=== PATIENT | male | born 1980 | race Hispanic/Latino ===

== ENCOUNTER 2019-08-26 07:49 | Emergency (ER) | payer OTHER ==
[2019-08-26] MEDS ORDERED: hydrOXYzine HCl 25 MG TAB ONE (08:08)
[2019-08-26 08:30] LABS: Protime INR 1.1
[2019-08-26 08:30] LABS: Urine Blood NEGATIVE (NEG); Urine Glucose NEGATIVE (NEG); Urine Protein 1+ (NEG); Urine pH 7.5 (5.0-7.0)
[2019-08-26 08:31] LABS: Absolute Lymphocytes (CBC) 1.5 K/uL (0.7-4.9); Basophils % 0.7 % (0-1.3); Hematocrit 45.4 % (39.6-49.0); Lymphocytes % 24.8 % (15.3-44.8); MPV 8.7 fL (7.6-11.3); RBC Red Blood Cell Count 5.43 M/uL (4.33-5.43)
[2019-08-26 08:48] LABS: ALT/SGPT 31 U/L (12-78); AST/SGOT 26 U/L (15-37); Albumin 4.2 g/dL (3.4-5.0); Alkaline Phosphatase 57 U/L (45-117); BUN Blood Urea Nitrogen 8 mg/dL (7-18); Bicarbonate 27 mmol/L (21-32); Bilirubin Direct 0.2 mg/dL (0-0.2); Bilirubin Total 0.6 mg/dL (0.2-1.0); Glucose Level 108 mg/dL (74-106); Potassium 3.7 mmol/L (3.5-5.1); Protein, Total 7.6 g/dL (6.4-8.2); Sodium Level 139 mmol/L (136-145)
[2019-08-26] MEDS ORDERED: HALOPERIDOL 5 MG TAB PO ONE (09:00)
[2019-08-26] MEDS ORDERED: LORAZEPAM 1 MG TABLET ONE (09:13)
--- NOTE | 2019-08-26 10:31 | ER ---
Nurse's Notes [facility] Name: Alonso Karimi Age: 38 yrs Sex: Male : 1980 Arrival Date: 08/26/2019 Time: 07:54 Bed 6 Private MD: Diagnosis: Manic episode, severe with psychotic symptoms Presentation: 08/26 07:54 Presenting complaint: EMS states: Pt reports his insides are falling out or being hb pulled out through his genitals. Denies SI/HI or illicit drug use. Transition of care: patient was not received from another setting of care. Onset of symptoms was August 26, 2019. Risk Assessment: Do you want to hurt yourself or someone else? Patient reports no desire to harm self or others. Initial Sepsis Screen: Does the patient meet any 2 criteria? No. Patient's initial sepsis screen is negative. Does the patient have a suspected source of infection? No. Patient's initial sepsis screen is negative. Care prior to arrival: None. 07:54 Method Of Arrival: EMS: [facility] 07:54 Acuity: HERMINIO 3 hb Triage Assessment: 07:58 General: Appears in no apparent distress. Behavior is cooperative, anxious. Pain: Pain hb currently is 10 out of 10 on a pain scale. EENT: No signs and/or symptoms were reported regarding the EENT system. Neuro: Level of Consciousness is awake, alert, obeys commands, Oriented to person, place, time, situation. Cardiovascular: Heart tones S1 S2 present Capillary refill < 3 seconds Patient's skin is warm and dry. Respiratory: Airway is patent Respiratory effort is even, unlabored, Respiratory pattern is regular, symmetrical, Breath sounds are clear bilaterally. GI: No signs and/or symptoms were reported involving the gastrointestinal system. : No signs and/or symptoms were reported regarding the genitourinary system. Derm: Skin is intact, is healthy with good turgor. Musculoskeletal: No signs and/or symptoms reported regarding the musculoskeletal system. Historical: - Allergies: 07:57 No Known Allergies; hb - Home Meds: 07:57 None [Active]; hb - PMHx: 07:57 Bipolar disorder; hb 10:31 Hypertension; gs - PSHx: 07:57 right middle finger surgery; hb - Immunization history:: Adult Immunizations up to date. - Social history:: Smoking status: Patient uses tobacco products, smokes one-half pack cigarettes per day. - Ebola Screening: : No symptoms or risks identified at this time. Screenin:59 Abuse screen: Denies threats or abuse. Denies injuries from another. Nutritional hb screening: No deficits noted. Tuberculosis screening: No symptoms or risk factors identified. Fall Risk None identified. Assessment: 07:59 General: see triage assessment. hb 09:00 Reassessment: Patient appears in no apparent distress at this time. No changes from previously documented assessment. Patient and/or family updated on plan of care and expected duration. Pain level reassessed. 09:04 Reassessment: Pt pacing room, NAD. Dr. Christianson at bedside. hb 09:25 Reassessment: Pt pacing, denies pain. Dr. Christianson aware. Ativan administered as ordered. hb 10:02 Reassessment: Reassessment: pt resting with eyes closed, arousable to verbal stimuli. hb VSS. Vital Signs: 07:57 BP 147 / 104; Pulse 86; Resp 16; Temp 97.8; Pulse Ox 100% on R/A; Weight 80.74 kg; hb Height 5 ft. 7 in. (170.18 cm); Pain 10/10; 09:00 BP 136 / 86; Pulse 80; Resp 16; Pulse Ox 100% on R/A; Pain 0/10; hb 10:00 BP 118 / 74; Pulse 68; Resp 15; Pulse Ox 100% on R/A; Pain 0/10; hb 07:57 Body Mass Index 27.88 (80.74 kg, 170.18 cm) ED Course: 07:54 Patient arrived in ED. hb 07:54 Dawson Christianson MD is Attending Physician. 07:56 Triage completed. hb 07:57 Arm band placed on. hb 07:59 Patient has correct armband on for positive identification. Bed in low position. Call light in reach. Side rails up X 1. 08:04 Alayna Melvin, AMOS is Primary Nurse. hb 08:24 Initial lab(s) drawn, by nh, sent to lab. Urine collected: clean catch specimen, clear, ms Amount Voided: 40mL. Inserted saline lock: 20 gauge in right forearm, using aseptic technique. 08:38 EKG done, by ED staff, reviewed by Dawson Christianson MD. ms 11:10 No provider procedures requiring assistance completed. IV discontinued, intact, hb bleeding controlled, No redness/swelling at site. Pressure dressing applied. Administered Medications: 08:08 Not Given (Duplicate Order): HydrALAZINE 50 mg PO once 08:10 Drug: hydrOXYzine 50 mg Route: PO; hb 09:06 Follow up: Response: No adverse reaction hb 09:06 Drug: Haldol 10 mg Route: PO; hb 10:00 Follow up: Response: No adverse reaction hb 09:17 Drug: Ativan 2 mg Route: PO; hb 10:15 Follow up: Response: No adverse reaction hb Outcome: 10:31 Discharge ordered by . gs 11:10 Discharged to home ambulatory. hb 11:10 Condition: stable 11:10 Discharge instructions given to patient, Instructed on discharge instructions, follow up and referral plans. medication usage, Demonstrated understanding of instructions, follow-up care, medications. 11:11 Patient left the ED. hb Signatures: Shazia Young ms Alayna Melvin RN RN Dawson Christianson MD MD Corrections: (The following items were deleted from the chart) 10:29 10:27 Reassessment: hb hb 11:10 11:10 Discharge instructions given to patient, Instructed on discharge instructions, hb follow up and referral plans. medication usage, Demonstrated understanding of instructions, follow-up care, wound care, hb
[2019-08-26 10:32] LABS: Barbiturates NEGATIVE (NEGATIVE); Benzodiazepines NEGATIVE (NEGATIVE); Cocaine NEGATIVE (NEGATIVE); METHAMPHETAM NEGATIVE (NEGATIVE); Methadone NEGATIVE (NEGATIVE); Opiates NEGATIVE (NEGATIVE); Phencyclidine NEGATIVE (NEGATIVE); THC Cannibis NEGATIVE (NEGATIVE)
--- NOTE | 2019-08-26 10:32 | EDPHYS ---
Physician Documentation [facility] Name: Alonso Karimi Age: 38 yrs Sex: Male : 1980 Arrival Date: 08/26/2019 Time: 07:54 Bed 6 Private MD: ED Physician Dawson Christianson HPI: 08/26 10:08 This 38 yrs old Male presents to ER via EMS with complaints of Psych Problem. gs 10:08 The patient presents to the emergency department with paranoia, psychosis, has gs experienced auditory hallucinations, has delusions. Onset: The symptoms/episode began/occurred at an unknown time. Past psychiatric history: Prior diagnosis: bipolar disorder, schizophrenia. Associated signs and symptoms: Pertinent negatives: homicidal ideation, suicide ideation. Severity of symptoms: At their worst the symptoms were severe in the emergency department the symptoms are unchanged. The patient has experienced similar episodes in the past, a few times. Historical: - Allergies: 07:57 No Known Allergies; hb - Home Meds: 07:57 None [Active]; hb - PMHx: 07:57 Bipolar disorder; hb 10:31 Hypertension; gs - PSHx: 07:57 right middle finger surgery; hb - Immunization history:: Adult Immunizations up to date. - Social history:: Smoking status: Patient uses tobacco products, smokes one-half pack cigarettes per day. - Ebola Screening: : No symptoms or risks identified at this time. ROS: 10:08 All other systems are negative. gs Exam: 10:08 Head/Face: Normocephalic, atraumatic. Eyes: Pupils equal round and reactive to light, gs extra-ocular motions intact. Lids and lashes normal. Conjunctiva and sclera are non-icteric and not injected. Cornea within normal limits. Periorbital areas with no swelling, redness, or edema. ENT: Nares patent. No nasal discharge, no septal abnormalities noted. Tympanic membranes are normal and external auditory canals are clear. Oropharynx with no redness, swelling, or masses, exudates, or evidence of obstruction, uvula midline. Mucous membranes moist. Neck: Trachea midline, no thyromegaly or masses palpated, and no cervical lymphadenopathy. Supple, full range of motion without nuchal rigidity, or vertebral point tenderness. No Meningismus. Chest/axilla: Normal chest wall appearance and motion. Nontender with no deformity. No lesions are appreciated. Cardiovascular: Regular rate and rhythm with a normal S1 and S2. No gallops, murmurs, or rubs. Normal PMI, no JVD. No pulse deficits. Respiratory: Lungs have equal breath sounds bilaterally, clear to auscultation and percussion. No rales, rhonchi or wheezes noted. No increased work of breathing, no retractions or nasal flaring. Abdomen/GI: Soft, non-tender, with normal bowel sounds. No distension or tympany. No guarding or rebound. No evidence of tenderness throughout. Back: No spinal tenderness. No costovertebral tenderness. Full range of motion. Skin: Warm, dry with normal turgor. Normal color with no rashes, no lesions, and no evidence of cellulitis. MS/ Extremity: Pulses equal, no cyanosis. Neurovascular intact. Full, normal range of motion. Neuro: Awake and alert, GCS 15, oriented to person, place, time, and situation. Cranial nerves II-XII grossly intact. Motor strength 5/5 in all extremities. Sensory grossly intact. Cerebellar exam normal. Normal gait. 10:08 Constitutional: The patient appears alert, awake. 10:08 Psych: Behavior/mood is pleasant, anxious, Affect is calm, Oriented to person, place, time, Patient has no thoughts/intents to harm self or others. Judgement / Insight is impaired. Delusions/hallucinations are present and described as says feels like he is having stigmata. Vital Signs: 07:57 BP 147 / 104; Pulse 86; Resp 16; Temp 97.8; Pulse Ox 100% on R/A; Weight 80.74 kg; hb Height 5 ft. 7 in. (170.18 cm); Pain 10/10; 09:00 BP 136 / 86; Pulse 80; Resp 16; Pulse Ox 100% on R/A; Pain 0/10; hb 10:00 BP 118 / 74; Pulse 68; Resp 15; Pulse Ox 100% on R/A; Pain 0/10; hb 07:57 Body Mass Index 27.88 (80.74 kg, 170.18 cm) hb MDM: 07:54 Patient medically screened. 10:08 Data reviewed: vital signs, nurses notes, lab test result(s). Counseling: I had a gs detailed discussion with the patient and/or guardian regarding: the historical points, exam findings, and any diagnostic results supporting the discharge/admit diagnosis, the need for outpatient follow up, a psychiatrist. Response to treatment: the patient's symptoms have markedly improved after treatment, pt is med noncompliant no direct desire to harm self others. . 08/26 07:55 Order name: Acetaminophen 08/26 07:55 Order name: Basic Metabolic Panel 08/26 07:55 Order name: CBC with Diff 08/26 07:55 Order name: ETOH Level 08/26 07:55 Order name: Hepatic Function 08/26 07:55 Order name: PT-INR 08/26 07:55 Order name: Salicylate 08/26 07:55 Order name: Urine Drug Screen 08/26 07:55 Order name: EKG; Complete Time: 07:56 08/26 08:12 Order name: Urine Dipstick--Ancillary (enter results) 08/26 07:55 Order name: EKG - Nurse/Tech; Complete Time: 08:38 08/26 07:55 Order name: IV Saline Lock; Complete Time: 08:10 08/26 07:55 Order name: Labs collected and sent; Complete Time: 08:10 08/26 07:55 Order name: Urine Dipstick-Ancillary (obtain specimen); Complete Time: 08:10 gs Administered Medications: 08:08 Not Given (Duplicate Order): HydrALAZINE 50 mg PO once gs 08:10 Drug: hydrOXYzine 50 mg Route: PO; hb 09:06 Follow up: Response: No adverse reaction hb 09:06 Drug: Haldol 10 mg Route: PO; hb 10:00 Follow up: Response: No adverse reaction hb 09:17 Drug: Ativan 2 mg Route: PO; hb 10:15 Follow up: Response: No adverse reaction hb Disposition: 08/26/19 10:31 Discharged to Home. Impression: Manic episode, severe with psychotic symptoms. - Condition is Stable. - Discharge Instructions: Bipolar Disorder. - Medication Reconciliation Form, Thank You Letter, Antibiotic Education, Prescription Opioid Use form. - Follow up: Private Physician; When: 2 - 3 days; Reason: Re-evaluation by your physician. Signatures: Dispatcher [employer] EDAlayna Guevara RN RN hb Starr, Gregory, MD MD Corrections: (The following items were deleted from the chart) 11:11 10:31 08/26/2019 10:31 Discharged to Home. Impression: Manic episode, severe with hb psychotic symptoms. Condition is Stable. Forms are Medication Reconciliation Form, Thank You Letter, Antibiotic Education, Prescription Opioid Use. Follow up: Private Physician; When: 2 - 3 days; Reason: Re-evaluation by your physician. gs
[2019-08-26 11:18] VITALS: TEMP 97.8; O2SAT 100
[2019-08-26 11:21] VITALS: BP 118/74
--- NOTE | 2019-08-27 06:11 | EKG ---
Test Date: 2019-08-26 Test Time: 08:31:29 Money Examiner: MEASUREMENT RESULTS: Intervals: Rate: 92 WI: 102 QRSD: 84 QT: 354 QTc: 437 [place]: P: 59 WI: 102 QRS: 69 T: 69 INTERPRETIVE STATEMENTS: Sinus rhythm with short WI Otherwise normal ECG Compared to ECG 06/27/2003 14:32:00 Sinus arrhythmia no longer present Electronically Signed On 08-27-19 06:09:57 CDT by Papito Beckwith
== END 2019-08-26 11:11 | disposition home or self-care (01) ==
LOC: ER 07:49
DX: F30.2 Manic episode, severe with psychotic symptoms (principal); I10 Essential (primary) hypertension; F17.210 Nicotine dependence, cigarettes, uncomplicated
CPT/HCPCS: 36415; 80048; 80076; 80307; 80320; 80329; 81003; 85025; 85610; 93005; 99284

== ENCOUNTER 2019-09-29 18:44 | Emergency (ER) | payer OTHER ==
--- OUTSIDE RECORDS SUMMARY | 2019-09-29 18:48 | XMS REPORT ---
:1980 [facility] Address [address] [place] [address] [address] [place] [address] Care Team Providers Name Role Phone Unavailable Unavailable Unavailable Problems This patient has no known problems. Allergies, Adverse Reactions, Alerts This patient has no known allergies or adverse reactions. Medications This patient has no known medications. Results Test Description Test Time Test Comments Text Results Atomic Results Result Comments RPR Qualitative 2019-07-10 16:44:26 Test Item Value Reference Range Comments RPR Qual (test code=RPR Qual) Non-Reactive Non-Reactive Reactive Control (test code=Reactive Control) Reactive Weak Reactive Control (test code=Weak Reactive Control) Weak Reactive Non-Reactive Control (test code=Non-Reactive Control) Non-Reactive Lot # (test code=Lot #) [id number] Expiration Dt (test code=Expiration Dt) 09-07-2020 Thyroid Stimulating [id number] 09:59:42 Test Item Value Reference Range Comments TSH (test code=TSH) 3.050 mIU/mL 0.270-4.200 Lipid [id number] 09:56:17 Test Item Value Reference Range Comments Cholesterol Total (test 147 mg/dL 0-200 RISK OF HEART DISEASEPublished code=Cholesterol Total) by [place] [employer] Analyte Optimal Borderline Increased RiskCHOL <200 200-239 >240TRIG <150 150-199 >200HDL Male >60 <40HDL Female >60 <50LDL <100 130-159 >160LDL Near optimal is 100-129 Triglycerides (test 65 mg/dL 9-200 code=Triglycerides) HDL (test code=HDL) 52 mg/dL 40-60 LDL (test code=LDL) 82 mg/dL 0-130 The equation being used in this calculation is LDL=(Chol - HDL) - (Trig / 5) VLDL (test code=VLDL) 13 mg/dL 5-40 The equation being used in this calculation is VLDL=Trig / 5 Chol/HDL (test 2.8 ratio 0.0-5.0 code=Chol/HDL) LDL/HDL Ratio (test 2 The equation being used in this code=LDL/HDL Ratio) calculation is LDL/HDL Ratio=LDL Calc/HDL Chol Alcohol [id number] 12:10:04 Test Item Value Reference Range Comments Ethanol Level (test <0.00 g/dL 0.00-0.01 Intoxicated 0.080 g/dL or more code=Ethanol Level) Ethanol Inst (test <0 code=Ethanol Inst) Comprehensive Metabolic [id number] 12:10:03 Test Item Value Reference Range Comments Sodium Level (test code=Sodium Level) 137.0 mmol/L 135.0-145.0 Potassium Level (test code=Potassium Level) 4.2 mmol/L 3.5-5.1 Chloride Level (test code=Chloride Level) 96 mmol/L 98-105 CO2 (test code=CO2) 27 mmol/L 22-29 Anion Gap (test code=Anion Gap) 14 mmol/L 7-16 BUN (test code=BUN) 8.70 mg/dL 6.00-20.00 Creatinine Level (test code=Creatinine Level) 1.00 mg/dL 0.70-1.20 BUN/Creat Ratio (test code=BUN/Creat Ratio) 9 Glucose Level (test code=Glucose Level) 97 mg/dL 70-115 Calcium Level (test code=Calcium Level) 9.6 mg/dL 8.3-10.5 Alk Phos (test code=Alk Phos) 65 U/L 40-129 Bilirubin Total (test code=Bilirubin Total) 0.6 mg/dL 0.1-0.9 Albumin Level (test code=Albumin Level) 4.9 g/dL 3.5-5.2 Protein Total (test code=Protein Total) 7.7 g/dL 6.4-8.3 ALT (test code=ALT) 21 U/L 1-41 AST (test code=AST) 28 U/L 1-40 Globulin (test code=Globulin) 2.8 g/dL 2.9-3.1 A/G Ratio (test code=A/G Ratio) 1.8 ratio Comprehensive Metabolic [id number] 12:10:03 Test Item Value Reference Range Comments Sodium Level (test 137.0 mmol/L 135.0-145.0 code=Sodium Level) Potassium Level (test 4.2 mmol/L 3.5-5.1 code=Potassium Level) Chloride Level (test 96 mmol/L 98-105 code=Chloride Level) CO2 (test code=CO2) 27 mmol/L 22-29 Anion Gap (test 14 mmol/L 7-16 code=Anion Gap) BUN (test code=BUN) 8.70 mg/dL 6.00-20.00 Creatinine Level (test 1.00 mg/dL 0.70-1.20 code=Creatinine Level) BUN/Creat Ratio (test 9 code=BUN/Creat Ratio) Glucose Level (test 97 mg/dL 70-115 code=Glucose Level) Calcium Level (test 9.6 mg/dL 8.3-10.5 code=Calcium Level) Alk Phos (test code=Alk 65 U/L 40-129 Phos) Bilirubin Total (test 0.6 mg/dL 0.1-0.9 code=Bilirubin Total) Albumin Level (test 4.9 g/dL 3.5-5.2 code=Albumin Level) Protein Total (test 7.7 g/dL 6.4-8.3 code=Protein Total) ALT (test code=ALT) 21 U/L 1-41 AST (test code=AST) 28 U/L 1-40 Globulin (test 2.8 g/dL 2.9-3.1 code=Globulin) A/G Ratio (test code=A/G 1.8 ratio Ratio) eGFR AA (test code=eGFR >60 mL/min/1.73 m2 eGFR (estimated AA) Glomerular Filtration Rate) is an estimated value, calculated from the patient's serum creatinine using the MDRD equation. It is NOT the patient's actual GFR. The eGFR provides a more clinically useful measure of kidney disease than serum creatinine alone.This calculation takes sex and race into account, if the information is provided. If the race is not provided, and the patient is -[place], multiply by 1.212. If sex is not provided, and the patient is female, multiply by 0.742. Results for patients <18 years of age have not been validated by the MDRD study and should be interpreted with caution. eGFR Result Interpretation:eGFR > or=60 is in the Normal RangeeGFR < 60 may mean kidney diseaseeGFR < 15 may mean kidney failure Ranges recommended by the National Kidney Foundation, http://nkdep.nih.gov Comprehensive Metabolic [id number] 12:10:03 Test Item Value Reference Range Comments Sodium Level (test 137.0 mmol/L 135.0-145.0 code=Sodium Level) Potassium Level (test 4.2 mmol/L 3.5-5.1 code=Potassium Level) Chloride Level (test 96 mmol/L 98-105 code=Chloride Level) CO2 (test code=CO2) 27 mmol/L 22-29 Anion Gap (test 14 mmol/L 7-16 code=Anion Gap) BUN (test code=BUN) 8.70 mg/dL 6.00-20.00 Creatinine Level (test 1.00 mg/dL 0.70-1.20 code=Creatinine Level) BUN/Creat Ratio (test 9 code=BUN/Creat Ratio) Glucose Level (test 97 mg/dL 70-115 code=Glucose Level) Calcium Level (test 9.6 mg/dL 8.3-10.5 code=Calcium Level) Alk Phos (test code=Alk 65 U/L 40-129 Phos) Bilirubin Total (test 0.6 mg/dL 0.1-0.9 code=Bilirubin Total) Albumin Level (test 4.9 g/dL 3.5-5.2 code=Albumin Level) Protein Total (test 7.7 g/dL 6.4-8.3 code=Protein Total) ALT (test code=ALT) 21 U/L 1-41 AST (test code=AST) 28 U/L 1-40 Globulin (test 2.8 g/dL 2.9-3.1 code=Globulin) A/G Ratio (test code=A/G 1.8 ratio Ratio) eGFR AA (test code=eGFR >60 mL/min/1.73 m2 eGFR (estimated AA) Glomerular Filtration Rate) is an estimated value, calculated from the patient's serum creatinine using the MDRD equation. It is NOT the patient's actual GFR. The eGFR provides a more clinically useful measure of kidney disease than serum creatinine alone.This calculation takes sex and race into account, if the information is provided. If the race is not provided, and the patient is -[place], multiply by 1.212. If sex is not provided, and the patient is female, multiply by 0.742. Results for patients <18 years of age have not been validated by the MDRD study and should be interpreted with caution. eGFR Result Interpretation:eGFR > or=60 is in the Normal RangeeGFR < 60 may mean kidney diseaseeGFR < 15 may mean kidney failure Ranges recommended by the National Kidney Foundation, http://nkdep.nih.gov eGFR Non-AA (test >60.00 mL/min/1.73 eGFR (estimated code=eGFR Non-AA) m2 Glomerular Filtration Rate) is an estimated value, calculated from the patient's serum creatinine using the MDRD equation. It is NOT the patient's actual GFR. The eGFR provides a more clinically useful measure of kidney disease than serum creatinine alone.This calculation takes sex and race into account, if the information is provided. If the race is not provided, and the patient is -[place], multiply by 1.212. If sex is not provided, and the patient is female, multiply by 0.742. Results for patients <18 years of age have not been validated by the MDRD study and should be interpreted with caution. eGFR Result Interpretation:eGFR > or=60 is in the Normal RangeeGFR < 60 may mean kidney diseaseeGFR < 15 may mean kidney failure Ranges recommended by the National Kidney Foundation, http://nkdep.nih.gov Urine Drug [id number] 12:08:43 Test Item Value Reference Range Comments Amphetamine Screen Ur (test POSITIVE Negative code=Amphetamine Screen Ur) Barbiturate Screen Ur (test Negative Negative code=Barbiturate Screen Ur) Benzodiazepines Ur (test Negative Negative code=Benzodiazepines Ur) Cocaine Screen Ur (test Negative Negative code=Cocaine Screen Ur) U Methadone Scr (test code=U Negative Negative Methadone Scr) Opiate Screen Ur (test Negative Negative code=Opiate Screen Ur) U PCP Scrn (test code=U PCP Negative Negative Scrn) Cannabinoid Screen Ur (test Negative Negative code=Cannabinoid Screen Ur) U TCA (test code=U TCA) Negative Negative The results of all drug screen tests are only preliminary. Clinical consideration and professional judgment should be applied to any drug of abuse test result, particularly when preliminary positive results are obtained. Please order a separate confirmatory test if desired. Complete Blood Count with [id number] 11:58:13 Test Item Value Reference Range Comments WBC (test code=WBC) 9.2 x10 4.4-10.5 RBC (test code=RBC) 5.60 x10 4.10-5.70 Hgb (test code=Hgb) 15.9 g/dL 13.4-17.4 Hct (test code=Hct) 47.3 % 38.7-52.0 MCV (test code=MCV) 84.50 fL 80.00-100.00 MCHC (test code=MCHC) 33.60 g/dL 32.00-37.50 RDW CV (test code=RDW CV) 12.9 % 11.5-14.5 MCH (test code=MCH) 28.4 pg 27.0-32.5 Platelets (test 207.0 x10 140.0-440.0 code=Platelets) MPV (test code=MPV) 10.8 fL Slide Review (test code=Slide Auto Auto Result created by Review) [id number] nRBC (test code=nRBC) 0 NRBC Abs (test code=NRBC Abs) 0.00 x10 IPF (test code=IPF) 0 % Automated [id number] 11:58:13 Test Item Value Reference Range Comments Neutro Auto (test code=Neutro Auto) 62.9 % 36.0-70.0 Lymph Auto (test code=Lymph Auto) 25.2 % 12.0-44.0 Powell Auto (test code=Powell Auto) 9.3 % 0.0-11.0 Eos, Auto (test code=Eos, Auto) 1.6 % 0.0-7.0 Basophil Auto (test code=Basophil Auto) 0.7 % 0.0-2.0 Neutro Absolute (test code=Neutro Absolute) 5.8 x10 1.6-7.4 Lymph Absolute (test code=Lymph Absolute) 2.32 x10 .50-4.60 Powell Absolute (test code=Powell Absolute) .86 x10 .00-1.20 Eos Absolute (test code=Eos Absolute) 0.15 x10 0.00-0.74 Baso Absolute (test code=Baso Absolute) 0.06 x10 0.00-0.21 IG [id number] 11:58:13 Test Item Value Reference Range Comments IG (test code=IG) 0.3 % 0.0-5.0 IG Abs (test code=IG Abs) 0 x10
[2019-09-29] MEDS ORDERED: ONDANSETRON 4 MG/2 ML VIAL ONE (19:10)
[2019-09-29] MEDS ORDERED: MORPHINE 4 MG/ML SYR ONE (19:10)
[2019-09-29 19:25] LABS: Absolute Lymphocytes (CBC) 2.3 K/uL (0.7-4.9); Basophils % 1.1 % (0-1.3); Hematocrit 45.8 % (39.6-49.0); Lymphocytes % 31.6 % (15.3-44.8); MPV 8.8 fL (7.6-11.3); RBC Red Blood Cell Count 5.32 M/uL (4.33-5.43)
[2019-09-29 20:43] LABS: ALT/SGPT 41 U/L (12-78); AST/SGOT 36 U/L (15-37); Albumin 4.1 g/dL (3.4-5.0); Alkaline Phosphatase 55 U/L (45-117); BUN Blood Urea Nitrogen 12 mg/dL (7-18); Bicarbonate 28 mmol/L (21-32); Bilirubin Direct < 0.1 mg/dL (0-0.2); Bilirubin Total 0.3 mg/dL (0.2-1.0); Glucose Level 126 mg/dL (74-106); Lipase 265 U/L (73-393); Potassium 3.9 mmol/L (3.5-5.1); Protein, Total 7.5 g/dL (6.4-8.2); Sodium Level 136 mmol/L (136-145)
--- NOTE | 2019-09-29 21:44 | ER ---
Nurse's Notes [facility] Name: Alonso Karimi Age: 38 yrs Sex: Male : 1980 Arrival Date: 09/29/2019 Time: 18:47 Bed 16 Private MD: Diagnosis: Generalized abdominal pain Presentation: 09/29 18:48 Presenting complaint: Patient states: diffuse abd pain that radiates down to bilateral sv knees, "I've been having dreams lately that I'm full of cancer and its just eating me up inside. I need to get it checked out.". Transition of care: patient was not received from another setting of care. Onset of symptoms is unknown. Care prior to arrival: None. 18:48 Method Of Arrival: Ambulatory sv 18:48 Acuity: HERMINIO 2 sv 19:05 Risk Assessment: Do you want to hurt yourself or someone else? Patient reports no ca1 desire to harm self or others. Initial Sepsis Screen: Does the patient meet any 2 criteria? No. Patient's initial sepsis screen is negative. Does the patient have a suspected source of infection? No. Patient's initial sepsis screen is negative. Historical: - Allergies: 18:48 No Known Drug Allergies; sv - PMHx: 18:48 Bipolar disorder; Hypertension; sv - PSHx: 18:48 right middle finger surgery; sv - Immunization history:: Adult Immunizations up to date, Flu vaccine is not up to date. - Social history:: Smoking status: Patient uses tobacco products, smokes one-half pack cigarettes per day. - Ebola Screening: : Patient negative for fever greater than or equal to 101.5 degrees Fahrenheit, and additional compatible Ebola Virus Disease symptoms Patient denies exposure to infectious person Patient denies travel to an Ebola-affected area in the 21 days before illness onset No symptoms or risks identified at this time. Screenin:02 Abuse screen: Denies threats or abuse. Denies injuries from another. Nutritional ca1 screening: No deficits noted. Tuberculosis screening: No symptoms or risk factors identified. Fall Risk IV access (20 points). Assessment: 19:02 General: Appears in no apparent distress. comfortable, Behavior is calm, cooperative. ca1 Pain: Complains of pain in abdomen Pain currently is 10 out of 10 on a pain scale. Pain began months ago Is intermittent. Neuro: Level of Consciousness is awake, alert, obeys commands, Oriented to person, place, time, situation. Cardiovascular: Heart tones S1 S2 present Capillary refill < 3 seconds Patient's skin is warm and dry. Respiratory: Airway is patent Respiratory effort is even, unlabored, Respiratory pattern is regular, symmetrical, Breath sounds are clear bilaterally. GI: Abdomen is flat, non-distended, Bowel sounds present X 4 quads. Abd is soft and non tender X 4 quads. Reports nausea. : No deficits noted. No signs and/or symptoms were reported regarding the genitourinary system. EENT: No deficits noted. No signs and/or symptoms were reported regarding the EENT system. Derm: Skin is intact, is healthy with good turgor, Skin is pink, warm \\T\\ dry. Musculoskeletal: Circulation, motion, and sensation intact. Capillary refill < 3 seconds, Range of motion: intact in all extremities. 19:44 Reassessment: Patient appears in no apparent distress at this time. Patient is alert, ca1 oriented x 3, equal unlabored respirations, skin warm/dry/pink. 20:39 Reassessment: Patient appears in no apparent distress at this time. Patient and/or ca1 family updated on plan of care and expected duration. Pain level reassessed. Patient is alert, oriented x 3, equal unlabored respirations, skin warm/dry/pink. 21:35 Reassessment: Patient appears in no apparent distress at this time. Patient is alert, ca1 oriented x 3, equal unlabored respirations, skin warm/dry/pink. Vital Signs: 18:50 BP 155 / 103; Pulse 122; Resp 18; Temp 98.5; Pulse Ox 98% ; Weight 88.45 kg; Height 5 sv ft. 10 in. (177.80 cm); 19:40 BP 142 / 94; Pulse 93; Resp 17; Pulse Ox 98% on R/A; ca1 21:19 BP 151 / 94; Pulse 91; Resp 18; Pulse Ox 100% on R/A; wh 21:50 BP 146 / 92; Pulse 92; Resp 17 S; Pulse Ox 98% on R/A; ca1 18:50 Body Mass Index 27.98 (88.45 kg, 177.80 cm) sv ED Course: 18:47 Patient arrived in ED. sv 18:48 Arm band placed on. sv 18:50 Triage completed. sv 18:52 [facility] nh 18:52 Terrell Mosquera MD is Attending Physician. nh 18:54 Dotty Hill, AMOS is Primary Nurse. ca1 19:05 Patient has correct armband on for positive identification. Placed in gown. Bed in low ca1 position. Call light in reach. Side rails up X 1. Pulse ox on. NIBP on. Warm blanket given. 19:07 No provider procedures requiring assistance completed. Initial lab(s) drawn, by me, ca1 sent to lab. Inserted saline lock: 20 gauge in left antecubital area, using aseptic technique. Blood collected. 19:49 Radiology exam delayed due to lab results not completed at this time. (BUN/Creatinine). [facility] 20:05 Radiology exam delayed due to lab results not completed at this time. (BUN/Creatinine). va 20:22 Radiology exam delayed due to lab results not completed at this time. (BUN/Creatinine). va 21:08 CT Abd/Pelvis - IV Contrast Only In Process Unspecified. EDMS 21:59 IV discontinued, intact, bleeding controlled, No redness/swelling at site. Pressure ca1 dressing applied. Administered Medications: 19:08 Drug: Zofran 4 mg Route: IVP; Site: left antecubital; ca1 20:00 Follow up: Response: No adverse reaction; Nausea is decreased ca1 21:49 Follow up: Response: No adverse reaction; Nausea is decreased 19:10 Drug: morphine 4 mg {Note: RASS - 0.} Route: IVP; Site: left antecubital; ca1 20:00 Follow up: Response: No adverse reaction; Pain is decreased; RASS: Alert and Calm (0) ca1 21:48 Follow up: Response: No adverse reaction; RASS: Alert and Calm (0) wh 21:50 Drug: Ativan 1 mg Route: PO; ca1 21:58 Follow up: Response: Medication administered at discharge. ca1 21:58 Drug: traMADol 50 mg Route: PO; ca1 21:58 Follow up: Response: No adverse reaction; Medication administered at discharge.; RASS: ca1 Alert and Calm (0) Outcome: 21:43 Discharge ordered by . nh 22:01 Discharged to home ambulatory, with significant other. ca1 22:01 Condition: stable 22:01 Discharge instructions given to patient, Instructed on discharge instructions, follow up and referral plans. medication usage, Demonstrated understanding of instructions, follow-up care, medications, Prescriptions given X 1. 22:01 Patient left the ED. ca1 Signatures: Dispatcher [employer] Rosalee Connor RN RN Nadine Sloan, [address] [employer] [employer] glo Newman, Stacey Love [facility] Tomás Cruz Dotty Hill RN RN ca1 Corrections: (The following items were deleted from the chart) 18:51 18:48 Acuity: HERMINIO 3 sv sv
--- NOTE | 2019-09-29 21:44 | EDPHYS ---
Physician Documentation [facility] Name: Alonso Karimi Age: 38 yrs Sex: Male : 1980 Arrival Date: 09/29/2019 Time: 18:47 Bed 16 Private MD: ED Physician Terrell Mosquera HPI: 09/29 20:46 This 38 yrs old Male presents to ER via Ambulatory with complaints of nh Abdominal Pain, Leg Pain. 20:46 The patient presents with abdominal pain that is diffuse. Onset: The symptoms/episode nh began/occurred 6 month(s) ago, and became persistent. The symptoms do not radiate. Associated signs and symptoms: none. The symptoms are described as sharp. Modifying factors: The symptoms are alleviated by nothing, the symptoms are aggravated by nothing. Severity of pain: At its worst the pain was severe. The patient has not experienced similar symptoms in the past. The patient has not recently seen a physician. Patient states that the pain has been going on for 6 months. He states that it is severe and he has been having visions that cancer is eating his insides. Historical: - Allergies: 18:48 No Known Drug Allergies; sv - PMHx: 18:48 Bipolar disorder; Hypertension; sv - PSHx: 18:48 right middle finger surgery; sv - Immunization history:: Adult Immunizations up to date, Flu vaccine is not up to date. - Social history:: Smoking status: Patient uses tobacco products, smokes one-half pack cigarettes per day. - Ebola Screening: : Patient negative for fever greater than or equal to 101.5 degrees Fahrenheit, and additional compatible Ebola Virus Disease symptoms Patient denies exposure to infectious person Patient denies travel to an Ebola-affected area in the 21 days before illness onset No symptoms or risks identified at this time. ROS: 20:46 Constitutional: Negative for fever, chills, and weight loss, Eyes: Negative for injury, nh pain, redness, and discharge, ENT: Negative for injury, pain, and discharge, Neck: Negative for injury, pain, and swelling, Cardiovascular: Negative for chest pain, palpitations, and edema, Respiratory: Negative for shortness of breath, cough, wheezing, and pleuritic chest pain, Back: Negative for injury and pain, : Negative for injury, bleeding, discharge, and swelling, MS/Extremity: Negative for injury and deformity, Skin: Negative for injury, rash, and discoloration, Neuro: Negative for headache, weakness, numbness, tingling, and seizure. 20:46 Abdomen/GI: Positive for abdominal pain, Negative for nausea and vomiting, nausea, vomiting, and diarrhea, nausea, vomiting, diarrhea, constipation, abdominal cramps, abdominal distension, anorexia, dysphagia, hematemesis, black/tarry stool, rectal pain, rectal bleeding, bowel incontinence, flatulence, acute changes. Exam: 20:46 Constitutional: This is a well developed, well nourished patient who is awake, alert, nh and in no acute distress. Head/Face: Normocephalic, atraumatic. Eyes: Pupils equal round and reactive to light, extra-ocular motions intact. Lids and lashes normal. Conjunctiva and sclera are non-icteric and not injected. Cornea within normal limits. Periorbital areas with no swelling, redness, or edema. ENT: Nares patent. No nasal discharge, no septal abnormalities noted. Tympanic membranes are normal and external auditory canals are clear. Oropharynx with no redness, swelling, or masses, exudates, or evidence of obstruction, uvula midline. Mucous membranes moist. Neck: Trachea midline, no thyromegaly or masses palpated, and no cervical lymphadenopathy. Supple, full range of motion without nuchal rigidity, or vertebral point tenderness. No Meningismus. Chest/axilla: Normal chest wall appearance and motion. Nontender with no deformity. No lesions are appreciated. Cardiovascular: Regular rate and rhythm with a normal S1 and S2. No gallops, murmurs, or rubs. Normal PMI, no JVD. No pulse deficits. Respiratory: Lungs have equal breath sounds bilaterally, clear to auscultation and percussion. No rales, rhonchi or wheezes noted. No increased work of breathing, no retractions or nasal flaring. Back: No spinal tenderness. No costovertebral tenderness. Full range of motion. Skin: Warm, dry with normal turgor. Normal color with no rashes, no lesions, and no evidence of cellulitis. MS/ Extremity: Pulses equal, no cyanosis. Neurovascular intact. Full, normal range of motion. Neuro: Awake and alert, GCS 15, oriented to person, place, time, and situation. Cranial nerves II-XII grossly intact. Motor strength 5/5 in all extremities. Sensory grossly intact. Cerebellar exam normal. Normal gait. Psych: Awake, alert, with orientation to person, place and time. Behavior, mood, and affect are within normal limits. 20:46 Abdomen/GI: Inspection: abdomen appears normal, Bowel sounds: normal, Palpation: mild abdominal tenderness, in all quadrants. Vital Signs: 18:50 BP 155 / 103; Pulse 122; Resp 18; Temp 98.5; Pulse Ox 98% ; Weight 88.45 kg; Height 5 sv ft. 10 in. (177.80 cm); 19:40 BP 142 / 94; Pulse 93; Resp 17; Pulse Ox 98% on R/A; ca1 21:19 BP 151 / 94; Pulse 91; Resp 18; Pulse Ox 100% on R/A; wh 21:50 BP 146 / 92; Pulse 92; Resp 17 S; Pulse Ox 98% on R/A; ca1 18:50 Body Mass Index 27.98 (88.45 kg, 177.80 cm) sv MDM: 18:52 Patient medically screened. va 21:42 Data reviewed: vital signs, nurses notes, lab test result(s), radiologic studies, I nh have discussed the patient's presentation/case with the attending Emergency Department Physician; and as a result, I will discharge patient. Counseling: I had a detailed discussion with the patient and/or guardian regarding: the historical points, exam findings, and any diagnostic results supporting the discharge/admit diagnosis, radiology results, the need for outpatient follow up, to return to the emergency department if symptoms worsen or persist or if there are any questions or concerns that arise at home. 09/29 18:59 Order name: Basic Metabolic Panel va 09/29 18:59 Order name: CBC with Diff; Complete Time: 19:37 va 09/29 18:59 Order name: Creatinine for Radiology va 09/29 18:59 Order name: Hepatic Function va 09/29 18:59 Order name: Lipase va 09/29 18:59 Order name: CT Abd/Pelvis - IV Contrast Only va 09/29 18:59 Order name: IV Saline Lock; Complete Time: 19:21 va 09/29 18:59 Order name: Labs collected and sent; Complete Time: 19:21 va Administered Medications: 19:08 Drug: Zofran 4 mg Route: IVP; Site: left antecubital; ca1 20:00 Follow up: Response: No adverse reaction; Nausea is decreased ca1 21:49 Follow up: Response: No adverse reaction; Nausea is decreased 19:10 Drug: morphine 4 mg {Note: RASS - 0.} Route: IVP; Site: left antecubital; ca1 20:00 Follow up: Response: No adverse reaction; Pain is decreased; RASS: Alert and Calm (0) ca1 21:48 Follow up: Response: No adverse reaction; RASS: Alert and Calm (0) wh 21:50 Drug: Ativan 1 mg Route: PO; ca1 21:58 Follow up: Response: Medication administered at discharge. ca1 21:58 Drug: traMADol 50 mg Route: PO; ca1 21:58 Follow up: Response: No adverse reaction; Medication administered at discharge.; RASS: ca1 Alert and Calm (0) Disposition: 09/30 07:25 Co-signature as Attending Physician, Terrell Mosquera MD I agree with the assessment and kdr plan of care. Disposition: 09/29/19 21:43 Discharged to Home. Impression: Generalized abdominal pain. - Condition is Stable. - Discharge Instructions: Abdominal Pain, Adult. - Prescriptions for Bentyl 20 mg Oral Tablet - take 1 tablet by ORAL route every 6 hours As needed; 20 tablet. - Medication Reconciliation Form, Thank You Letter, Antibiotic Education, Prescription Opioid Use form. - Follow up: Private Physician; When: 2 - 3 days; Reason: Recheck today's complaints. - Problem is new. - Symptoms are unchanged. Signatures: Dispatcher [employer] Rosalee Connor RN RN Terrell Mosquera MD MD [facility] Nadine Vasquez, REDUCTION FURNACE OPERATOR REDUCTION FURNACE OPERATOR va Dotty Hill RN RN [facility] Tom[facility] Cruz Corrections: (The following items were deleted from the chart) 09/29 22:01 21:43 09/29/2019 21:43 Discharged to Home. Impression: Generalized abdominal pain. ca1 Condition is Stable. Forms are Medication Reconciliation Form, Thank You Letter, Antibiotic Education, Prescription Opioid Use. Follow up: Private Physician; When: 2 - 3 days; Reason: Recheck today's complaints. Problem is new. Symptoms are unchanged. va
[2019-09-29] MEDS ORDERED: TRAMADOL HCL 50 MG TAB ONE (21:52)
[2019-09-29] MEDS ORDERED: LORAZEPAM 1 MG TABLET ONE (21:52)
[2019-09-29 22:29] VITALS: TEMP 98.5
[2019-09-29 22:34] VITALS: BP 146/92; O2SAT 98
--- NOTE | 2019-10-02 14:07 | RAD REPORT ---
EXAM DESCRIPTION: Abdomen Pelvis W Contrast CLINICAL HISTORY: Diffuse abdominal pain which radiates to the lower extremities. TECHNIQUE: CT scan of the abdomen and pelvis was performed with intravenous contrast. 5 mm arterial phase axial images of the abdomen were obtained. 5 mm venous phase axial images of the abdomen and pelvis were obtained along with coronal and sagitta l reformatted images. DOSE OPTIMIZATION: This facility uses dose optimization techniques as appropriate to perform exams, including at least one of the following techniques: 1. Automated exposure control. 2. Adjustment of the mA and/or kV according to patient size (this includes techniques or standardized protocols for targeted exams where dose is matched to the indication/reason for exam, i.e. extremiti es or head). 3. Use of iterative reconstructive technique. INTRAVENOUS CONTRAST: Not documented. Please refer to medical record. COMPARISON: None. FINDINGS: Lung Bases: Normal. Liver: Normal. Spleen: Normal. Pancreas: Normal. Gallbladder: Normal. Adrenal Glands: Normal. Kidneys: Normal. Retroperitoneal Structures: Normal. Bowel Survey: There is increased stool in the ascending colon. The distal ileum is unremarkable. The appendix is unremarkable. Prostate Gland: Normal in size. Urinary Bladder: Normal. Peritoneal Cavity: Normal. Mesenteric Structures: Normal. Abdominal Wall: No hernia. Bony Structures: No suspicious lesions. IMPRESSION: 1. Increased stool in the ascending colon. Electronically signed by: Rasheed Gomez MD 09/29/2019 9:33 PM CLERICAL AIDE Due to temporary technical issues with the PACS/Fluency reporting system, reports are being signed by the in house radiologist as a courtesy to ensure prompt reporting. The interpreting radiologist is f ully responsible for the content of the report.
== END 2019-09-29 22:01 | disposition home or self-care (01) ==
LOC: ER 18:44
DX: R10.84 Generalized abdominal pain (principal); I10 Essential (primary) hypertension; F17.210 Nicotine dependence, cigarettes, uncomplicated
CPT/HCPCS: 85025; 80048; 36415; 80076; 83690; 74177; 96375; 96374; 99284; Q9967; J2405

== ENCOUNTER 2020-02-13 18:37 | Emergency (ER) | payer OTHER ==
[2020-02-13 21:50] VITALS: TEMP 97.7
[2020-02-13 21:51] VITALS: BP 120/80; O2SAT 97
== END 2020-02-13 21:42 | disposition home or self-care (01) ==
LOC: ER 18:37
DX: F31.9 Bipolar disorder, unspecified (principal); I10 Essential (primary) hypertension; Z72.0 Tobacco use
CPT/HCPCS: 96361; 93005; 85025; 80048; 36415; 80320; 80329 ×2; 85610; 80076; 80307 ×8; 85730; 81003; 70450; 96372; 96374; 99284; J1630; J7030

== ENCOUNTER 2020-03-15 19:24 | Emergency (ER) | payer OTHER ==
--- OUTSIDE RECORDS SUMMARY | 2020-03-15 19:27 | XMS REPORT ---
:1980 Author Organization [employer] Care Team Providers Name Role Phone Lorena Carcamoh Provider Role Unavailable Allergies No Known Allergies Problems Problem Type Condition Code Onset Dates Condition Statu s Problem PTSD (post-traumatic stress F43.10 Active disorder) Problem Other chronic pain G89.29 Active Problem Anxiety F41.9 Active Problem Insomnia, unspecified type G47.00 A ctive Medications No Known Medications Results No Known Results Summary Purpose [employer] Submission
--- OUTSIDE RECORDS SUMMARY | 2020-03-15 19:27 | XMS REPORT ---
:1980 Author Organization [employer] Care Team Providers Name Role Phone Frances Morales Provider Role Unavailable Allergies, Adverse Reactions, Alerts Substance Reaction Event Type N.K.D.A. Info Not Available Non Drug Allergy Problems Problem Type Condition Code Onset Dates Condition Statu s Assessment PTSD (post-traumatic stress F43.10 Active disorder) Assessment Insomnia, unspecified type G47.00 A ctive Problem PTSD (post-traumatic stress F43.10 Active disorder) Problem Other chronic pain G89.29 Active Problem Anxiety F41.9 Active Assessment Other chronic pain G89.29 Active Assessment Anxiety F41.9 Active Problem Insomnia, unspecified type G47.00 A ctive Medications Medication Code Code Instructions Start End Status Dosage System Date Date Tramadol HCl ND 82935743017 50 MG Orally Sep 21, Sep 26, Active 1 tablet Once every 2018 2018 as needed 8hours PRN pain Divalproex ND 88830942976 500 MG Oral Active not Sodium defined BusPIRone HCl ND 64753454641 7.5 MG Orally Sep 21, Active 1 tablet Every 8-10 2019 hours for ancxiety Results No Known Results Summary Purpose [employer] Submission
--- OUTSIDE RECORDS SUMMARY | 2020-03-15 19:27 | XMS REPORT ---
:1980 Author Organization [facility] Address [address] [place] [address] Care Team Providers Name Role Phone Unavailable Unavailable Unavailable Problems Condition Condition Condition Status Onset Resolution Last Treatin g Comments Name Details Category Date Date Treatment Clinician Date PTSD PTSD Problem Active (post-traum (post-traum atic stress atic stress disorder) disorder) Insomnia, Insomnia, Problem Active unspecified unspecified type type Other Other Problem Active chronic chronic pain pain Anxiety Anxiety Problem Active Other Other Diagnosis Active fatigue fatigue Major Major Problem Active depressive depressive disorder, disorder, single single episode, episode, unspecified unspecified Allergies, Adverse Reactions, Alerts This patient has no known allergies or adverse reactions. Medications Ordered Filled Start Stop Current Ordering Indication Dosage Frequency Signature Comments Components Medication Medication Date Date Medication? Clinician (SIG) Name Name BusPIRone BusPIRone 2018- Yes Frances 1 tablet HCl HCl 14 Morales 00:00: 00 Divalproex Divalproex Yes Frances not Sodium Sodium Morales defined Encounters Start End Encounter Admission Attending Care Care Encounter Date/Time Date/Time Type Type Clinicians Facility Department ID 2019-11-15 2019-11-15 [id number] 08:00:00 08:00:00 [facility] 2019-10-03 2019-10-03 [facility] [id number] 13:48:00 13:48:00 [facility] 2019-09-21 2019-09-21 [facility] [id number] 11:20:00 11:20:00 [facility] Results Test Description Test Time Test Comments Text Results Atomic Results Result Comments RPR Qualitative 2019-07-10 16:44:26 Test Item Value Reference Range Comments RPR Qual (test code = RPR Qual) Non-Reactive Non-Reactive Reactive Control (test code = Reactive Control) Reactive Weak Reactive Control (test code = Weak Reactive Weak Reactive Control) Non-Reactive Control (test code = Non-Reactive Control) Non-Reac tive Lot # (test code = Lot #) [id number] Expiration Dt (test code = Expiration Dt) 09-07-2020 Thyroid Stimulating [id number] 09:59:42 Test Item Value Reference Range Comments TSH (test code = TSH) 3.050 mIU/mL 0.270-4.200 Lipid [id number] 09:56:17 Test Item Value Reference Range Comments Cholesterol Total (test code 147 mg/dL 0-200 RIS K OF HEART DISEASEPublished = Cholesterol Total) by [place] [employer] Analyte Optimal Borderline Increased RiskCH OL <200 200-239 >240TRIG <150 150-199 >200HDL Male >6 0 <40HDL Female >60 <50 LDL <100 130-159 >160LDL Near optimal is 100-129 Triglycerides (test code = 65 mg/dL 9-200 Triglycerides) HDL (test code = HDL) 52 mg/dL 40-60 LDL (test code = LDL) 82 mg/dL 0-130 The equati on being used in this calculation is LDL = (Chol - HDL) - (Trig / 5 ) VLDL (test code = VLDL) 13 mg/dL 5-40 The equa tion being used in this calculation is VLDL = Trig / 5 Chol/HDL (test code = 2.8 ratio 0.0-5.0 Chol/HDL) LDL/HDL Ratio (test code = 2 The e quation being used in this LDL/HDL Ratio) calculation is LDL/HDL Ratio=LDL Calc/H DL Chol Alcohol [id number] 12:10:04 Test Item Value Reference Range Comments Ethanol Level (test code = <0.00 g/dL 0.00-0.01 Intox icated 0.080 g/dL or more Ethanol Level) Ethanol Inst (test code = <0 Ethanol Inst) Comprehensive Metabolic [id number] 12:10:03 Test Item Value Reference Range Comments Sodium Level (test code = Sodium Level) 137.0 mmol/L 135.0-14 5.0 Potassium Level (test code = Potassium Level) 4.2 mmol/L 3. 5-5.1 Chloride Level (test code = Chloride Level) 96 mmol/L 98-1 05 CO2 (test code = CO2) 27 mmol/L 22-29 Anion Gap (test code = Anion Gap) 14 mmol/L 7-16 BUN (test code = BUN) 8.70 mg/dL 6.00-20.00 Creatinine Level (test code = Creatinine Level) 1.00 mg/dL 0.70-1.20 BUN/Creat Ratio (test code = BUN/Creat Ratio) 9 Glucose Level (test code = Glucose Level) 97 mg/dL 70-115 Calcium Level (test code = Calcium Level) 9.6 mg/dL 8.3-10 .5 Alk Phos (test code = Alk Phos) 65 U/L 40-129 Bilirubin Total (test code = Bilirubin Total) 0.6 mg/dL 0. 1-0.9 Albumin Level (test code = Albumin Level) 4.9 g/dL 3.5-5. 2 Protein Total (test code = Protein Total) 7.7 g/dL 6.4-8. 3 ALT (test code = ALT) 21 U/L 1-41 AST (test code = AST) 28 U/L 1-40 Globulin (test code = Globulin) 2.8 g/dL 2.9-3.1 A/G Ratio (test code = A/G Ratio) 1.8 ratio Comprehensive Metabolic [id number] 12:10:03 Test Item Value Reference Range Comments Sodium Level (test code = 137.0 mmol/L 135.0-145.0 Sodium Level) Potassium Level (test 4.2 mmol/L 3.5-5.1 code = Potassium Level) Chloride Level (test code 96 mmol/L 98-105 = Chloride Level) CO2 (test code = CO2) 27 mmol/L 22-29 Anion Gap (test code = 14 mmol/L 7-16 Anion Gap) BUN (test code = BUN) 8.70 mg/dL 6.00-20.00 Creatinine Level (test 1.00 mg/dL 0.70-1.20 code = Creatinine Level) BUN/Creat Ratio (test 9 code = BUN/Creat Ratio) Glucose Level (test code 97 mg/dL 70-115 = Glucose Level) Calcium Level (test code 9.6 mg/dL 8.3-10.5 = Calcium Level) Alk Phos (test code = Alk 65 U/L 40-129 Phos) Bilirubin Total (test 0.6 mg/dL 0.1-0.9 code = Bilirubin Total) Albumin Level (test code 4.9 g/dL 3.5-5.2 = Albumin Level) Protein Total (test code 7.7 g/dL 6.4-8.3 = Protein Total) ALT (test code = ALT) 21 U/L 1-41 AST (test code = AST) 28 U/L 1-40 Globulin (test code = 2.8 g/dL 2.9-3.1 Globulin) A/G Ratio (test code = 1.8 ratio A/G Ratio) eGFR AA (test code = eGFR >60 mL/min/1.73 m2 eGF R (estimated AA) Glomerular Filtr ation Rate) is an neha mated value, calculate d from the patient's se rum creatinine using the MDRD equation. It is NOT the patient's actual GFR. The eGFR provides a more clinically usefu l measure of kidney diseas e than serum creatinine alone.This ca lculation takes sex and ra ce into account, if the information is p rovided. If the race is n ot provided, and th e patient is -Ameri can, multiply by 1.21 2. If sex is not provided, and the patient is femal e, multiply by 0.74 2. Results for francisco ents <18 years of age hav e not been validated b y the MDRD study and s santy be interpreted with caution. eGFR Result Interpretation:e GFR > or = 60 is in the N ormal RangeeGFR < 60 m ay mean kidney diseaseeG FR < 15 may mean kidney failure Range s recommended by zayra stokes National Kid[employer] Foundation, http://nkdep.nih .gov Comprehensive Metabolic [id number] 12:10:03 Test Item Value Reference Range Comments Sodium Level (test code = 137.0 mmol/L 135.0-145.0 Sodium Level) Potassium Level (test 4.2 mmol/L 3.5-5.1 code = Potassium Level) Chloride Level (test code 96 mmol/L 98-105 = Chloride Level) CO2 (test code = CO2) 27 mmol/L 22-29 Anion Gap (test code = 14 mmol/L 7-16 Anion Gap) BUN (test code = BUN) 8.70 mg/dL 6.00-20.00 Creatinine Level (test 1.00 mg/dL 0.70-1.20 code = Creatinine Level) BUN/Creat Ratio (test 9 code = BUN/Creat Ratio) Glucose Level (test code 97 mg/dL 70-115 = Glucose Level) Calcium Level (test code 9.6 mg/dL 8.3-10.5 = Calcium Level) Alk Phos (test code = Alk 65 U/L 40-129 Phos) Bilirubin Total (test 0.6 mg/dL 0.1-0.9 code = Bilirubin Total) Albumin Level (test code 4.9 g/dL 3.5-5.2 = Albumin Level) Protein Total (test code 7.7 g/dL 6.4-8.3 = Protein Total) ALT (test code = ALT) 21 U/L 1-41 AST (test code = AST) 28 U/L 1-40 Globulin (test code = 2.8 g/dL 2.9-3.1 Globulin) A/G Ratio (test code = 1.8 ratio A/G Ratio) eGFR AA (test code = eGFR >60 mL/min/1.73 m2 eGF R (estimated AA) Glomerular Filtr ation Rate) is an neha mated value, calculate d from the patient's se rum creatinine using the MDRD equation. It is NOT the patient's actual GFR. The eGFR provides a more clinically usefu l measure of kidney diseas e than serum creatinine alone.This ca lculation takes sex and ra ce into account, if the information is p rovided. If the race is n ot provided, and th e patient is -Ameri can, multiply by 1.21 2. If sex is not provided, and the patient is femal e, multiply by 0.74 2. Results for francisco ents <18 years of age hav e not been validated b y the MDRD study and cameron madera be interpreted with caution. eGFR Result Interpretation:e GFR > or = 60 is in the N ormal RangeeGFR < 60 m ay mean kidney diseaseeG FR < 15 may mean kidney failure Range s recommended by zayra stokes National Kidney Foundation, http://nkdep.nih .gov eGFR Non-AA (test code = >60.00 mL/min/1.73 eGFR (estimated eGFR Non-AA) m2 Glomerular Filtr ation Rate) is an neha mated value, calculate d from the patient's se rum creatinine using the MDRD equation. It is NOT the patient's actual GFR. The eGFR provides a more clinically usefu l measure of kidney diseas e than serum creatinine alone.This ca lculation takes sex and ra ce into account, if the information is p rovided. If the race is n ot provided, and th e patient is -Ameri can, multiply by 1.21 2. If sex is not provided, and the patient is femal e, multiply by 0.74 2. Results for francisco ents <18 years of age hav e not been validated b y the MDRD study and s santy be interpreted with caution. eGFR Result Interpretation:e GFR > or = 60 is in the N ormal RangeeGFR < 60 m ay mean kidney diseaseeG FR < 15 may mean kidney failure Range s recommended by zayra stokes National Kidney Foundation, http://nkdep.nih .gov Urine Drug [id number] 12:08:43 Test Item Value Reference Range Comments Amphetamine Screen Ur (test POSITIVE Negative code = Amphetamine Screen Ur) Barbiturate Screen Ur (test Negative Negative code = Barbiturate Screen Ur) Benzodiazepines Ur (test code = Negative Negative Benzodiazepines Ur) Cocaine Screen Ur (test code = Negative Negative Cocaine Screen Ur) U Methadone Scr (test code = U Negative Negative Methadone Scr) Opiate Screen Ur (test code = Negative Negative Opiate Screen Ur) U PCP Scrn (test code = U PCP Negative Negative Scrn) Cannabinoid Screen Ur (test Negative Negative code = Cannabinoid Screen Ur) U TCA (test code = U TCA) Negative Negative The re sults of all drug screen tests are only preliminary. Cli nical consideration an d professional malka gment should be applied to an y drug of abuse test resul t, particularly whe n preliminary positive results are obtained. Please order a separate confirm atory test if desired. Complete Blood Count with [id number] 11:58:13 Test Item Value Reference Range Comments WBC (test code = WBC) 9.2 x10 4.4-10.5 RBC (test code = RBC) 5.60 x10 4.10-5.70 Hgb (test code = Hgb) 15.9 g/dL 13.4-17.4 Hct (test code = Hct) 47.3 % 38.7-52.0 MCV (test code = MCV) 84.50 fL 80.00-100.00 MCHC (test code = MCHC) 33.60 g/dL 32.00-37.50 RDW CV (test code = RDW CV) 12.9 % 11.5-14.5 MCH (test code = MCH) 28.4 pg 27.0-32.5 Platelets (test code = 207.0 x10 140.0-440.0 Platelets) MPV (test code = MPV) 10.8 fL Slide Review (test code = Auto Auto Result created by Slide Review) [id number]_SJM_[id number]_[id number] _AUTO nRBC (test code = nRBC) 0 NRBC Abs (test code = NRBC 0.00 x10 Abs) IPF (test code = IPF) 0 % Automated [id number] 11:58:13 Test Item Value Reference Range Comments Neutro Auto (test code = Neutro Auto) 62.9 % 36.0-70.0 Lymph Auto (test code = Lymph Auto) 25.2 % 12.0-44.0 Owsley Auto (test code = Owsley Auto) 9.3 % 0.0-11.0 Eos, Auto (test code = Eos, Auto) 1.6 % 0.0-7.0 Basophil Auto (test code = Basophil Auto) 0.7 % 0.0-2. 0 Neutro Absolute (test code = Neutro Absolute) 5.8 x10 1. 6-7.4 Lymph Absolute (test code = Lymph Absolute) 2.32 x10 .50- 4.60 Owsley Absolute (test code = Owsley Absolute) .86 x10 .00-1. 20 Eos Absolute (test code = Eos Absolute) 0.15 x10 0.00-0.7 4 Baso Absolute (test code = Baso Absolute) 0.06 x10 0.00-0 .21 IG [id number] 11:58:13 Test Item Value Reference Range Comments IG (test code = IG) 0.3 % 0.0-5.0 IG Abs (test code = IG Abs) 0 x10
--- OUTSIDE RECORDS SUMMARY | 2020-03-15 19:28 | XMS REPORT ---
:1980 Author Organization [employer] Care Team Providers Name Role Phone Frances Morales Provider Role Unavailable Allergies, Adverse Reactions, Alerts Substance Reaction Event Type N.K.D.A. Info Not Available Non Drug Allergy Problems Problem Type Condition Code Onset Dates Condition Statu s Assessment Other fatigue R53.83 Active Assessment Chronic anxiety F41.9 Active Assessment PTSD (post-traumatic stress F43.10 Active disorder) Assessment Major depressive disorder, single F32.9 Active episode, unspecified Problem Chronic anxiety F41.9 Active Problem Insomnia, unspecified type G47.00 A ctive Problem Major depressive disorder, single F32.9 Active episode, unspecified Problem Other chronic pain G89.29 Active Problem Anxiety F41.9 Active Problem PTSD (post-traumatic stress F43.10 Active disorder) Medications Medication Code Code Instructions Start End Status Dosage System Date Date BusPIRone HCl [facility] [id number] 7.5 MG Orally Sep 21, Active 1 tablet Every 8-10 2019 hours for ancxiety Divalproex ND 36582029620 500 MG Oral Active not Sodium defined Results No Known Results Summary Purpose [employer] Submission
[2020-03-15] MEDS ORDERED: ACETAMINOPHEN 500 MG TAB ONE (20:10)
[2020-03-15] MEDS ORDERED: NA CHLORIDE 0.9% 1,000 ML ONE (20:11)
--- NOTE | 2020-03-15 20:36 | RAD REPORT ---
EXAM DESCRIPTION: [facility] Single View03/15/2020 8:25 pm CLINICAL HISTORY: Chest pain COMPARISON: none FINDINGS: The lungs appear clear of acute infiltrate. The heart is normal size IMPRESSION: No acute abnormalities displayed
--- NOTE | 2020-03-15 20:50 | RAD REPORT ---
EXAM DESCRIPTION: CT - Head Brain Wo Cont - 03/15/2020 8:22 pm CLINICAL HISTORY: Headache COMPARISON: February 2020 TECHNIQUE: Computed axial tomography of the head was obtained. IV contrast was not requested. All CT scans are performed using dose optimization technique as appropriate and may include automated exposure control or mA/KV adjustment according to patient size. FINDINGS: An intracranial bleed is not seen . The ventricles are normal in caliber. No extra-axial fluid collection is noted. Fluid within the sinuses/ mastoids is not seen. IMPRESSION: No acute intracranial abnormality is seen. If patient's symptoms persist MRI of the bra in would be recommended.
[2020-03-15 21:10] LABS: Protime INR 1.13
[2020-03-15 21:25] LABS: ALT/SGPT 45 U/L (12-78); AST/SGOT 56 U/L (15-37); Albumin 4.4 g/dL (3.4-5.0); Alkaline Phosphatase 60 U/L (45-117); BUN Blood Urea Nitrogen 13 mg/dL (7-18); Bicarbonate 29 mmol/L (21-32); Bilirubin Direct 0.2 mg/dL (0-0.2); Bilirubin Total 0.8 mg/dL (0.2-1.0); Glucose Level 88 mg/dL (74-106); Magnesium 2.4 mg/dL (1.8-2.4); NT PRO-BNP 82 pg/mL (<125); Potassium 3.8 mmol/L (3.5-5.1); Protein, Total 8.1 g/dL (6.4-8.2); Sodium Level 138 mmol/L (136-145); Troponin (Emerg Dept Use Only) < 0.02 ng/mL (0.0-0.045)
[2020-03-15 21:27] LABS: Absolute Lymphocytes (CBC) 2.3 K/uL (0.7-4.9); Basophils % 0.8 % (0-1.3); Hematocrit 47.5 % (39.6-49.0); Lymphocytes % 18.3 % (15.3-44.8); MPV 8.9 fL (7.6-11.3); RBC Red Blood Cell Count 5.67 M/uL (4.33-5.43)
[2020-03-15 22:31] LABS: Absolute Lymphocytes (CBC) 2.6 K/uL (0.7-4.9); Basophils % 0.8 % (0-1.3); Hematocrit 44.8 % (39.6-49.0); Lymphocytes % 20.7 % (15.3-44.8); MPV 8.8 fL (7.6-11.3); RBC Red Blood Cell Count 5.32 M/uL (4.33-5.43)
[2020-03-15 23:24] LABS: Barbiturates NEGATIVE (NEGATIVE); Benzodiazepines NEGATIVE (NEGATIVE); Cocaine NEGATIVE (NEGATIVE); METHAMPHETAM POSITIVE (NEGATIVE); Methadone NEGATIVE (NEGATIVE); Opiates NEGATIVE (NEGATIVE); Phencyclidine NEGATIVE (NEGATIVE); THC Cannibis NEGATIVE (NEGATIVE)
[2020-03-15 23:25] LABS: Urine Blood 1+ (NEG); Urine Glucose NEGATIVE (NEG); Urine Protein TRACE (NEG); Urine Specific Gravity >1.030 (1.005-1.030)
--- NOTE | 2020-03-16 00:33 | EDPHYS ---
Physician Documentation [facility] Name: Alonso Karimi Age: 39 yrs Sex: Male : 1980 Arrival Date: 03/15/2020 Time: 19:27 Bed 7 Private MD: ED Physician Santosh Dallas HPI: 03/15 20:19 This 39 yrs old Male presents to ER via Ambulatory with complaints of Doesn't pkl Feel Right, Headache, BODY PAIN. 20:19 The patient complains of pain to the top of head and forehead. The patient describes pkl the headache as constant. Onset: The symptoms/episode began/occurred 2 day(s) ago. Associated signs and symptoms: Pertinent positives: generalized body pain. Historical: - Allergies: 19:42 No Known Allergies; lp1 - Home Meds: 19:42 None [Active]; lp1 - PMHx: 19:42 Bipolar disorder; Hypertension; Anxiety; ADD/ADHD; lp1 - PSHx: 19:42 None; lp1 - Immunization history:: Adult Immunizations up to date. - Social history:: Smoking status: Patient reports the use of cigarette tobacco products, denies chronic smoking, but will smoke occasionally, Patient/guardian denies using street drugs. ROS: 20:19 Eyes: Negative for injury, pain, redness, and discharge, ENT: Negative for injury, pkl pain, and discharge, Neck: Negative for injury, pain, and swelling, Cardiovascular: Negative for chest pain, palpitations, and edema, Respiratory: Negative for shortness of breath, cough, wheezing, and pleuritic chest pain, Abdomen/GI: Negative for abdominal pain, nausea, vomiting, diarrhea, and constipation, Back: Negative for injury and pain, : Negative for injury, bleeding, discharge, and swelling, MS/Extremity: Negative for injury and deformity, Skin: Negative for injury, rash, and discoloration. 20:19 Neuro: Positive for headache, of the forehead and top of head, Unable to sleep. Exam: 20:19 Head/Face: Normocephalic, atraumatic. Eyes: Pupils equal round and reactive to light, pkl extra-ocular motions intact. Lids and lashes normal. Conjunctiva and sclera are non-icteric and not injected. Cornea within normal limits. Periorbital areas with no swelling, redness, or edema. ENT: Nares patent. No nasal discharge, no septal abnormalities noted. Tympanic membranes are normal and external auditory canals are clear. Oropharynx with no redness, swelling, or masses, exudates, or evidence of obstruction, uvula midline. Mucous membranes moist. Neck: Trachea midline, no thyromegaly or masses palpated, and no cervical lymphadenopathy. Supple, full range of motion without nuchal rigidity, or vertebral point tenderness. No Meningismus. Chest/axilla: Normal chest wall appearance and motion. Nontender with no deformity. No lesions are appreciated. Cardiovascular: Regular rate and rhythm with a normal S1 and S2. No gallops, murmurs, or rubs. Normal PMI, no JVD. No pulse deficits. Respiratory: Lungs have equal breath sounds bilaterally, clear to auscultation and percussion. No rales, rhonchi or wheezes noted. No increased work of breathing, no retractions or nasal flaring. Abdomen/GI: Soft, non-tender, with normal bowel sounds. No distension or tympany. No guarding or rebound. No evidence of tenderness throughout. Back: No spinal tenderness. No costovertebral tenderness. Full range of motion. Skin: Warm, dry with normal turgor. Normal color with no rashes, no lesions, and no evidence of cellulitis. MS/ Extremity: Pulses equal, no cyanosis. Neurovascular intact. Full, normal range of motion. Neuro: Awake and alert, GCS 15, oriented to person, place, time, and situation. Cranial nerves II-XII grossly intact. Motor strength 5/5 in all extremities. Sensory grossly intact. Cerebellar exam normal. Normal gait. Vital Signs: 19:38 BP 152 / 110; Pulse 107; Resp 18; Temp 99.2(O); Pulse Ox 97% on R/A; Weight 79.38 kg lp1 (R); Height 5 ft. 9 in. (175.26 cm); Pain 10/10; 21:16 BP 131 / 80; Pulse 106; Resp 18; Pulse Ox 100% ; ea 21:36 BP 131 / 80; Pulse 91; Resp 18; Pulse Ox 100% on R/A; ea 22:20 BP 126 / 82; Pulse 78; Resp 18; Pulse Ox 100% on R/A; ea 03/16 00:38 BP 115 / 75; Pulse 65; Resp 18; Pulse Ox 99% on R/A; ea 03/15 19:38 Body Mass Index 25.84 (79.38 kg, 175.26 cm) lp1 MDM: 03/15 19:30 Patient medically screened. pk 20:41 Data reviewed: vital signs, nurses notes. ED course: Patient examined with full PPE.. pkl 20:45 ED course: Patient refused Covid 19 test. [facility] 03/16 00:27 ED course: Discussed lab. and imaging studies with patient. Advised to follow up with [facility] PCP in 2 to 3 days. Patient understood instructions. 03/15 19:55 Order name: Basic Metabolic Panel; Complete Time: 21:43 03/15 19:55 Order name: CBC with Diff; Complete Time: 21:43 03/15 19:55 Order name: LFT's; Complete Time: 21:43 03/15 19:55 Order name: Magnesium; Complete Time: 21:43 03/15 19:55 Order name: NT PRO-BNP; Complete Time: 21:43 03/15 19:55 Order name: PT-INR; Complete Time: 21:43 03/15 19:55 Order name: Troponin (emerg Dept Use Only); Complete Time: 21:43 03/15 21:01 Order name: UDS; Complete Time: 00:26 [facility] 03/15 21:50 Order name: CBC with Diff; Complete Time: 22:48 03/15 19:55 Order name: XRAY Chest (1 view); Complete Time: 21:00 03/15 19:55 Order name: EKG; Complete Time: 19:56 03/15 19:55 Order name: Cardiac monitoring; Complete Time: 21:01 03/15 19:55 Order name: EKG - Nurse/Tech; Complete Time: 21:01 03/15 19:55 Order name: IV Saline Lock; Complete Time: 21:01 03/15 19:55 Order name: Labs collected and sent; Complete Time: 21:01 03/15 19:55 Order name: O2 Per Protocol; Complete Time: 21:01 03/15 19:55 Order name: O2 Sat Monitoring; Complete Time: 21:01 03/15 19:55 Order name: Droplet/Contact Precautions; Complete Time: 21:36 03/15 19:55 Order name: Labs collected and sent; Complete Time: 21:36 03/15 19:55 Order name: CT Head Brain wo Cont; Complete Time: 21:00 03/15 23:11 Order name: Urine Dipstick--Ancillary (enter results) mw2 03/15 23:11 Order name: Urine Dipstick-Ancillary; Complete Time: 00:26 EDAZ 03/15 19:55 Order name: O2 Per Protocol; Complete Time: 21:35 03/15 23:08 Order name: Urine Dipstick-Ancillary (obtain specimen); Complete Time: 23:08 sg Administered Medications: 03/15 21:00 Drug: Tylenol 1000 mg Route: PO; ea 21:34 Follow up: Response: No adverse reaction 21: Drug: NS 0.9% 1000 ml Route: IV; Rate: 1000 ml; Site: right antecubital; ea :34 Follow up: Response: No adverse reaction; IV Status: Completed infusion; IV Intake: ea 1000ml Disposition: 03/16/20 00:32 Discharged to Home. Impression: Acute headache. Substance abuse. - Condition is Stable. - Medication Reconciliation Form, Thank You Letter, Antibiotic Education, Prescription Opioid Use form. - Follow up: Private Physician; When: 2 - 3 days; Reason: Re-evaluation by your physician. - Problem is new. - Symptoms have improved. Signatures: Dispatcher [employer] EDMS Bharathi Gibbs RN RN sg Lam, Pin, MD MD pkl Pena, Laura, RN RN lp1 Ana Laura Biswas RN RN ea Corrections: (The following items were deleted from the chart) 21:25 19:56 Group A Streptococcus Rapid Sc+BA.LAB.BRZ ordered. EDAZ EDMS 21:25 19:58 Influenza Screen (A ordered. EDAZ EDMS 21:25 20:52 CORONAVIRUS+MR.LAB.BRZ ordered. [facility] EDMS 21:35 19:55 Document PUI# ordered. kg 03/16 00:38 03/15 19:55 [facility] [phone]/ ordered. kg saul 03/16 00:45 00:32 03/16/2020 00:32 Discharged to Home. Impression: Acute headache. Substance abuse. ea Condition is Stable. Forms are Medication Reconciliation Form, Thank You Letter, Antibiotic Education, Prescription Opioid Use. Follow up: Private Physician; When: 2 - 3 days; Reason: Re-evaluation by your physician. Problem is new. Symptoms have improved. pkl
--- NOTE | 2020-03-16 00:33 | ER ---
Nurse's Notes [facility] Name: Alonso Karimi Age: 39 yrs Sex: Male : 1980 Arrival Date: 03/15/2020 Time: 19:27 Bed 7 Private MD: Diagnosis: Acute headache. Substance abuse Presentation: 03/15 19:38 Chief complaint: Patient states: "I just want to get some tests done, maybe an MRI or lp1 something; I just feel like my brain, my heart, and my genitals are being shredded up"; States having this feeling since 2016; Patient states he has not slept in about 48 hours; states feeling "pain to all my major organs". Coronavirus screen: Proceed with normal triage. Ebola Screen: No symptoms or risks identified at this time. Initial Sepsis Screen: Does the patient meet any 2 criteria? HR > 90 bpm. Does the patient have a suspected source of infection? No. Patient's initial sepsis screen is negative. Risk Assessment: Do you want to hurt yourself or someone else? Patient reports no desire to harm self or others. Onset of symptoms was March 15, 2020. 19:38 Method Of Arrival: Ambulatory lp1 19:38 Acuity: HERMINIO 3 lp1 Triage Assessment: 21:02 Headache History: Denies prior headaches. General: Appears in no apparent distress. ea Historical: - Allergies: 19:42 No Known Allergies; lp1 - Home Meds: 19:42 None [Active]; lp1 - PMHx: 19:42 Bipolar disorder; Hypertension; Anxiety; ADD/ADHD; lp1 - PSHx: 19:42 None; lp1 - Immunization history:: Adult Immunizations up to date. - Social history:: Smoking status: Patient reports the use of cigarette tobacco products, denies chronic smoking, but will smoke occasionally, Patient/guardian denies using street drugs. Screenin:42 Abuse screen: Denies threats or abuse. Denies injuries from another. Nutritional lp1 screening: No deficits noted. Tuberculosis screening: No symptoms or risk factors identified. Fall Risk None identified. Assessment: 21:02 General: Appears in no apparent distress. Behavior is calm, cooperative, appropriate ea for age. Pain: Complains of pain in forehead. Neuro: Level of Consciousness is awake, alert, obeys commands, Oriented to person, place, time, situation. Cardiovascular: Patient's skin is warm and dry. Respiratory: Airway is patent Respiratory effort is even, unlabored, Respiratory pattern is regular, symmetrical. Derm: Skin is pink, warm \\T\\ dry. 22:20 Reassessment: Patient and/or family updated on plan of care and expected duration. Pain ea level reassessed. Patient is alert, oriented x 3, equal unlabored respirations, skin warm/dry/pink. Awaiting on lab results. 23:00 Reassessment: Patient and/or family updated on plan of care and expected duration. Pain ea level reassessed. Patient is alert, oriented x 3, equal unlabored respirations, skin warm/dry/pink. 03/16 00:40 Reassessment: Patient and/or family updated on plan of care and expected duration. Pain ea level reassessed. Patient is alert, oriented x 3, equal unlabored respirations, skin warm/dry/pink. Discharge instruction given to patient, verbalized the understanding of instruction. Pt left ED ambulatory tolerating well. Vital Signs: 03/15 19:38 BP 152 / 110; Pulse 107; Resp 18; Temp 99.2(O); Pulse Ox 97% on R/A; Weight 79.38 kg lp1 (R); Height 5 ft. 9 in. (175.26 cm); Pain 10/10; 21:16 BP 131 / 80; Pulse 106; Resp 18; Pulse Ox 100% ; ea 21:36 BP 131 / 80; Pulse 91; Resp 18; Pulse Ox 100% on R/A; ea 22:20 BP 126 / 82; Pulse 78; Resp 18; Pulse Ox 100% on R/A; ea 03/16 00:38 BP 115 / 75; Pulse 65; Resp 18; Pulse Ox 99% on R/A; ea 03/15 19:38 Body Mass Index 25.84 (79.38 kg, 175.26 cm) lp1 ED Course: 03/15 19:27 Patient arrived in ED. cf2 19:30 Santosh Dallas MD is Attending Physician. pkl 19:31 Bharathi Gibbs, AMOS is Primary Nurse. sg 19:41 Triage completed. lp1 19:41 Arm band placed on. lp1 19:42 Patient has correct armband on for positive identification. lp1 20:22 CT Head Brain wo Cont In Process Unspecified. EDMS 20:24 XRAY Chest (1 view) In Process Unspecified. EDMS 21:02 Inserted saline lock: 20 gauge in right antecubital area, using aseptic technique. ea 23:04 Ana Laura Biswas, RN is Primary Nurse. ea 03/16 00:39 No provider procedures requiring assistance completed. ea 00:40 IV discontinued, intact, bleeding controlled, No redness/swelling at site. Pressure ea dressing applied. Administered Medications: 03/15 21:00 Drug: Tylenol 1000 mg Route: PO; ea 21:34 Follow up: Response: No adverse reaction ea 21:01 Drug: NS 0.9% 1000 ml Route: IV; Rate: 1000 ml; Site: right antecubital; ea 21:34 Follow up: Response: No adverse reaction; IV Status: Completed infusion; IV Intake: ea 1000ml Intake: 21:34 IV: 1000ml; Total: 1000ml. ea Outcome: 03/16 00:32 Discharge ordered by . pkl 00:45 Patient left the ED. ea 00:47 Discharged to home ambulatory. ea 00:47 Condition: stable 00:47 Discharge instructions given to patient, Instructed on discharge instructions, follow up and referral plans. Demonstrated understanding of instructions, follow-up care. Signatures: Dispatcher [employer] Bharathi Ulloa RN Santosh Sibley MD MD pkl Pena, Laura RN AMOS 1 Ana Laura Biswas, Gilles Phelps RN, ea 2
[2020-03-16 01:07] VITALS: TEMP 99.2
[2020-03-16 01:13] VITALS: BP 115/75; O2SAT 99
--- NOTE | 2020-03-16 12:18 | EKG ---
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
== END 2020-03-16 00:45 | disposition home or self-care (01) ==
LOC: ER 19:24
DX: F19.10 Other psychoactive substance abuse, uncomplicated (principal); I10 Essential (primary) hypertension; Z72.0 Tobacco use
CPT/HCPCS: 93005; 85025 ×2; 80048; 36415; 83735; 85610; 80076; 80307 ×8; 81003; 84484; 83880; 70450; 71045; 96360; 99284; J7030

== ENCOUNTER 2020-04-03 12:51 | Emergency (ER) | payer OTHER ==
[2020-04-03] MEDS ORDERED: HYDROCODONE/APAP 10/325 TAB ONE (13:39)
--- NOTE | 2020-04-03 14:45 | RAD REPORT ---
EXAM DESCRIPTION: RAD - Ribs Left - 04/03/2020 2:28 pm CLINICAL HISTORY: Fall, left-sided rib pain COMPARISON: None. FINDINGS: Nondisplaced fractures of the left seventh and eighth ribs are present. No other rib fract ures seen. No aggressive rib lesion. No underlying pneumothorax, effusion, infiltrate or pulmonary co ntusion. IMPRESSION: Nondisplaced left seventh and eighth rib fractures.
--- OUTSIDE RECORDS SUMMARY | 2020-04-03 14:59 | XMS REPORT ---
:1980 Author Organization [facility] t Address [address] [place] [address] Care Team Providers Name Role Phone JoshuaBaylee Ray Attending Clinician Singer MANRIQUE Attending Clinician Problems Condition Condition Condition Status Onset Resolution Last Treating Co mments Source Name Details Category Date Date Treatment Clinician Date PTSD PTSD Problem Active [facility] ([facility]u (post-trau Rebecca kes - matic matic Memoria stress stress l disorder) disorder) Outp ati ent Clinics Insomnia, Insomnia, Problem Active [facility] unspecifie unspecifie Rebecca kes - d type d type [facility] Other Other Problem Active [facility] Anxiety Anxiety Problem Active [facility] Other Other Diagnosis Active [facility] fatigue fatigue [facility] Major Major Problem Active [facility] depressive depressive Rebecca kes - disorder, disorder, Rodo maria luz single single l episode, episode, Outpat i unspecifie unspecifie en t d d Clinics Allergies, Adverse Reactions, Alerts This patient has no known allergies or adverse reactions. Medications Ordered Filled Start Stop Current Ordering Indication Dosage Frequency Signature Comments Components Source Medication Medication Date Date Medication? Clinician (SIG) Name Name BusPIRone BusPIRone 2018-11 Yes Frances [address] [facility] HCl HCl 14 [facility] - 00:00: [facility] Divalproex Divalproex Yes Frances not [facility] Sodium Sodium Omrales defined [facility] ent [facility] Procedures This patient has no known procedures. Encounters Start End Encounter Admission Attending Care Care Encounter Source Date/Time Date/Time Type Type Clinicians Facility Department ID 2019-11-15 2019-11-15 Outpatient Mariearcadio Vincenzo [id number] [facility] 08:00:00 08:00:00 t [facility] ent Clinics 2019-10-03 2019-10-03 Outpatient Mariearcadio Eusebiot [id number] [address] 13:48:00 13:48:00 t [facility] ent Clinics 2019-09-21 2019-09-21 Outpatient Eusebio Kaplant [id number] [facility] 11:20:00 11:20:00 t [facility] ent [facility] 2019-07-03 2019-07-03 Emergency Elina Lewis [facility] [id number] 13:53:15 15:28:00 Baylee Edgarton [id number] [place] [id number] [place] [id number] 2019-06-20 2019-06-20 Emergency Torres, [facility].[id number] 10:24:21 11:43:00 Dylon Faith [id number] [place] [id number] [place] [address] [id number] Results Test Description Test Time Test Comments Results Result Comments Source RPR Qualitative 2019-07-10 16:44:26 Test Item Value Reference Range Interpretation Comme nts RPR Qual (test code = RPR Qual) Non-Reactive Non-Reactive Reactive Control (test code = Reactive Control) Reactive Weak Reactive Control (test code = Weak Reactive Weak Reactive Control) Non-Reactive Control (test code = Non-Reactive Non-Reactive Control) Lot # (test code = Lot #) [id number] Expiration Dt (test code = Expiration Dt) 09-07-2020 N Thyroid Stimulating [id number] 09:59:42 Test Item Value Reference Range Interpretation Comments TSH (test code = TSH) 3.050 mIU/mL 0.270-4.200 Lipid [id number] 09:56:17 Test Item Value Reference Range Interpretation Comments Cholesterol Total 147 mg/dL 0-200 RISK OF HE ART (test code = DISEASEPublishe d by Cholesterol Total) [employer] Barbara lyte Optimal Borderl ine Increased RiskC HOL <200 200-239 >2 40TRIG <150 150-199 >2 00HDL Male >60 <40H DL Female >60 <5 0LDL <100 130-159 >1 60LDL Near optimal is 100-129 Triglycerides (test 65 mg/dL 9-200 code = Triglycerides) HDL (test code = HDL) 52 mg/dL 40-60 LDL (test code = LDL) 82 mg/dL 0-130 The eq uation being used in this calcula tion is LDL = (Chol - H DL) - (Trig / 5) VLDL (test code = 13 mg/dL 5-40 The equati on being used VLDL) in this calcula tion is VLDL = Trig / 5 Chol/HDL (test code = 2.8 ratio 0.0-5.0 Chol/HDL) LDL/HDL Ratio (test 2 N The equa tion being used code = LDL/HDL Ratio) in thi s calculation is LDL/HDL Ratio=L DL Calc/HDL Chol Alcohol [id number] 12:10:04 Test Item Value Reference Range Interpretation Comments Ethanol Level (test <0.00 g/dL 0.00-0.01 Intoxica maribeth 0.080 g/dL code = Ethanol or more Level) Ethanol Inst (test <0 N code = Ethanol Inst) Comprehensive Metabolic [id number] 12:10:03 Test Item Value Reference Range Interpretation Comments Sodium Level (test code = Sodium 137.0 mmol/L 135.0-145.0 Level) Potassium Level (test code = 4.2 mmol/L 3.5-5.1 Potassium Level) Chloride Level (test code = 96 mmol/L 98-105 L Chloride Level) CO2 (test code = CO2) 27 mmol/L 22-29 Anion Gap (test code = Anion 14 mmol/L 7-16 Gap) BUN (test code = BUN) 8.70 mg/dL 6.00-20.00 Creatinine Level (test code = 1.00 mg/dL 0.70-1.20 Creatinine Level) BUN/Creat Ratio (test code = 9 N BUN/Creat Ratio) Glucose Level (test code = 97 mg/dL 70-115 Glucose Level) Calcium Level (test code = 9.6 mg/dL 8.3-10.5 Calcium Level) Alk Phos (test code = Alk Phos) 65 U/L 40-129 Bilirubin Total (test code = 0.6 mg/dL 0.1-0.9 Bilirubin Total) Albumin Level (test code = 4.9 g/dL 3.5-5.2 Albumin Level) Protein Total (test code = 7.7 g/dL 6.4-8.3 Protein Total) ALT (test code = ALT) 21 U/L 1-41 AST (test code = AST) 28 U/L 1-40 Globulin (test code = Globulin) 2.8 g/dL 2.9-3.1 L A/G Ratio (test code = A/G 1.8 ratio N Ratio) Comprehensive Metabolic [id number] 12:10:03 Test Item Value Reference Range Interpretation Comments Sodium Level (test 137.0 mmol/L 135.0-145.0 code = Sodium Level) Potassium Level 4.2 mmol/L 3.5-5.1 (test code = Potassium Level) Chloride Level (test 96 mmol/L 98-105 L code = Chloride Level) CO2 (test code = 27 mmol/L 22-29 CO2) Anion Gap (test code 14 mmol/L 7-16 = Anion Gap) BUN (test code = 8.70 mg/dL 6.00-20.00 BUN) Creatinine Level 1.00 mg/dL 0.70-1.20 (test code = Creatinine Level) BUN/Creat Ratio 9 N (test code = BUN/Creat Ratio) Glucose Level (test 97 mg/dL 70-115 code = Glucose Level) Calcium Level (test 9.6 mg/dL 8.3-10.5 code = Calcium Level) Alk Phos (test code 65 U/L 40-129 = Alk Phos) Bilirubin Total 0.6 mg/dL 0.1-0.9 (test code = Bilirubin Total) Albumin Level (test 4.9 g/dL 3.5-5.2 code = Albumin Level) Protein Total (test 7.7 g/dL 6.4-8.3 code = Protein Total) ALT (test code = 21 U/L 1-41 ALT) AST (test code = 28 U/L 1-40 AST) Globulin (test code 2.8 g/dL 2.9-3.1 L = Globulin) A/G Ratio (test code 1.8 ratio N = A/G Ratio) eGFR AA (test code = >60 N eGFR (e stimated eGFR AA) mL/min/1.73 m2 Glomerular Filtration Rate ) is an estimated va lue, calculated from the patient's serum creatinine usin g the MDRD equation. It is NOT the patient 's actual GFR. The eGFR provides a more clinically usef ul measure of kidn ey disease than se rum creatinine alone.This calculation holland es sex and race in to account, if the information is provided. If th e race is not provided, and t he patient is -Juju n, multiply by 1.2 12. If sex is not provided, and t he patient is fema le, multiply by 0.7 42. Results for pat ients <18 years of ag e have not been validated by th e MDRD study and should be interpreted wit h caution. eGFR R esult Interpretation: eGFR > or = 60 is in the Normal RangeeGF R < 60 may mean kid endy diseaseeGFR < 1 5 may mean kidney failure Rang es recommended by the National Kidney Foundation, http://nkdep.ni h.gov Comprehensive Metabolic [id number] 12:10:03 Test Item Value Reference Range Interpretation Comments Sodium Level (test 137.0 mmol/L 135.0-145.0 code = Sodium Level) Potassium Level 4.2 mmol/L 3.5-5.1 (test code = Potassium Level) Chloride Level (test 96 mmol/L 98-105 L code = Chloride Level) CO2 (test code = 27 mmol/L 22-29 CO2) Anion Gap (test code 14 mmol/L 7-16 = Anion Gap) BUN (test code = 8.70 mg/dL 6.00-20.00 BUN) Creatinine Level 1.00 mg/dL 0.70-1.20 (test code = Creatinine Level) BUN/Creat Ratio 9 N (test code = BUN/Creat Ratio) Glucose Level (test 97 mg/dL 70-115 code = Glucose Level) Calcium Level (test 9.6 mg/dL 8.3-10.5 code = Calcium Level) Alk Phos (test code 65 U/L 40-129 = Alk Phos) Bilirubin Total 0.6 mg/dL 0.1-0.9 (test code = Bilirubin Total) Albumin Level (test 4.9 g/dL 3.5-5.2 code = Albumin Level) Protein Total (test 7.7 g/dL 6.4-8.3 code = Protein Total) ALT (test code = 21 U/L 1-41 ALT) AST (test code = 28 U/L 1-40 AST) Globulin (test code 2.8 g/dL 2.9-3.1 L = Globulin) A/G Ratio (test code 1.8 ratio N = A/G Ratio) eGFR AA (test code = >60 N eGFR (e stimated eGFR AA) mL/min/1.73 m2 Glomerular Filtration Rate ) is an estimated va lue, calculated from the patient's serum creatinine usin g the MDRD equation. It is NOT the patient 's actual GFR. The eGFR provides a more clinically usef ul measure of kidn ey disease than se rum creatinine alone.This calculation holland es sex and race in to account, if the information is provided. If th e race is not provided, and t he patient is -Juju n, multiply by 1.2 12. If sex is not provided, and t he patient is fema le, multiply by 0.7 42. Results for pat ients <18 years of ag e have not been validated by th e MDRD study and should be interpreted wit h caution. eGFR R esult Interpretation: eGFR > or = 60 is in the Normal RangeeGF R < 60 may mean kid endy diseaseeGFR < 1 5 may mean kidney failure Rang es recommended by the National Kidney Foundation, http://nkdep.ni h.gov eGFR Non-AA (test >60.00 N eGFR (neha mated code = eGFR Non-AA) mL/min/1.73 m2 Glomer ular Filtration Rate ) is an estimated va lue, calculated from the patient's serum creatinine usin g the MDRD equation. It is NOT the patient 's actual GFR. The eGFR provides a more clinically usef ul measure of kidn ey disease than se rum creatinine alone.This calculation holland es sex and race in to account, if the information is provided. If th e race is not provided, and t he patient is -Juju n, multiply by 1.2 12. If sex is not provided, and t he patient is fema le, multiply by 0.7 42. Results for pat ients <18 years of ag e have not been validated by th e MDRD study and should be interpreted wit h caution. eGFR R esult Interpretation: eGFR > or = 60 is in the Normal RangeeGF R < 60 may mean kid endy diseaseeGFR < 1 5 may mean kidney failure Rang es recommended by the National Kidney Foundation, http://nkdep.ni h.gov Urine Drug [id number] 12:08:43 Test Item Value Reference Range Interpretation Comments Amphetamine Screen Ur POSITIVE Negative A (test code = Amphetamine Screen Ur) Barbiturate Screen Ur Negative Negative (test code = Barbiturate Screen Ur) Benzodiazepines Ur (test Negative Negative code = Benzodiazepines Ur) Cocaine Screen Ur (test Negative Negative code = Cocaine Screen Ur) U Methadone Scr (test Negative Negative code = U Methadone Scr) Opiate Screen Ur (test Negative Negative code = Opiate Screen Ur) U PCP Scrn (test code = Negative Negative U PCP Scrn) Cannabinoid Screen Ur Negative Negative (test code = Cannabinoid Screen Ur) U TCA (test code = U Negative Negative The res ults of all TCA) drug screen ike ts are only preliminar y. Clinical consideration a nd professional ju dgment should be appli ed to any drug of abu se test result, particularly wh en preliminary pos itive results are obt ained. Please order a separate confir matory test if desired . Complete Blood Count with [id number] 11:58:13 Test Item Value Reference Range Interpretation Comments WBC (test code = WBC) 9.2 x10 4.4-10.5 RBC (test code = RBC) 5.60 x10 4.10-5.70 Hgb (test code = Hgb) 15.9 g/dL 13.4-17.4 Hct (test code = Hct) 47.3 % 38.7-52.0 MCV (test code = MCV) 84.50 fL 80.00-100.00 MCHC (test code = 33.60 g/dL 32.00-37.50 MCHC) RDW CV (test code = 12.9 % 11.5-14.5 RDW CV) MCH (test code = MCH) 28.4 pg 27.0-32.5 Platelets (test code = 207.0 x10 140.0-440.0 Platelets) MPV (test code = MPV) 10.8 fL N Slide Review (test Auto Auto Result cr eated by code = Slide Review) GL_SJM_ SLIDE_REV_AUTO nRBC (test code = 0 N nRBC) NRBC Abs (test code = 0.00 x10 N NRBC Abs) IPF (test code = IPF) 0 % N Automated [id number] 11:58:13 Test Item Value Reference Range Interpretation Comments Neutro Auto (test code = Neutro 62.9 % 36.0-70.0 Auto) Lymph Auto (test code = Lymph Auto) 25.2 % 12.0-44.0 Refugio Auto (test code = Refugio Auto) 9.3 % 0.0-11.0 Eos, Auto (test code = Eos, Auto) 1.6 % 0.0-7.0 Basophil Auto (test code = Basophil 0.7 % 0.0-2.0 Auto) Neutro Absolute (test code = Neutro 5.8 x10 1.6-7.4 Absolute) Lymph Absolute (test code = Lymph 2.32 x10 .50-4.60 Absolute) Refugio Absolute (test code = Refugio .86 x10 .00-1.20 Absolute) Eos Absolute (test code = Eos 0.15 x10 0.00-0.74 Absolute) Baso Absolute (test code = Baso 0.06 x10 0.00-0.21 Absolute) IG [id number] 11:58:13 Test Item Value Reference Range Interpretation Comments IG (test code = IG) 0.3 % 0.0-5.0 IG Abs (test code = IG Abs) 0 x10 N
[2020-04-03] MEDS ORDERED: IBUPROFEN 400 MG TAB ONE (15:18)
[2020-04-03 15:33] VITALS: TEMP 99.2
[2020-04-03 15:35] VITALS: BP 141/96; O2SAT 99
--- NOTE | 2020-04-08 14:24 | EDPHYS ---
Physician Documentation [facility] Name: Alonso Karimi Age: 39 yrs Sex: Male : 1980 Arrival Date: 04/03/2020 Time: 12:55 Bed 5 Private MD: ED Physician Terrell Mosquera HPI: 04/03 16:23 This 39 yrs old Male presents to ER via Ambulatory with complaints of Fall kdr Injury. 16:23 The patient or guardian reports chest pain that is located primarily in the left kdr lateral anterior chest. Onset: The symptoms/episode began/occurred acutely, suddenly, this morning. The pain does not radiate. Associated signs and symptoms: Pertinent positives: None. Pertinent negatives:. The chest pain is described as sharp, stabbing. Duration: The patient or guardian reports a single episode, that is still ongoing, and unchanged. Modifying factors: The symptoms are alleviated by nothing. remaining still, the symptoms are aggravated by breathing, cough, deep breath, movement, twisting torso. Severity of pain: At its worst the pain was moderate severe just prior to arrival, in the emergency department the pain is unchanged. The patient has not experienced similar symptoms in the past. Historical: - Allergies: 14:47 No Known Allergies; jl7 - Home Meds: 14:47 Adderall XR Oral [Active]; jl7 - PMHx: 14:47 ADD/ADHD; Anxiety; Bipolar disorder; Hypertension; jl7 - PSHx: 14:47 None; jl7 - Immunization history: Last tetanus immunization: unknown. - Social history:: Smoking status: Patient reports the use of cigarette tobacco products, denies chronic smoking, but will smoke occasionally, Patient reports use of chewing tobacco. ROS: 16:23 Constitutional: Negative for fever, chills, and weight loss, Eyes: Negative for injury, kdr pain, redness, and discharge, Neck: Negative for injury, pain, and swelling, Respiratory: Negative for shortness of breath, cough, wheezing, and pleuritic chest pain, Abdomen/GI: Negative for abdominal pain, nausea, vomiting, diarrhea, and constipation, Back: Negative for injury and pain, MS/Extremity: Negative for injury and deformity, Skin: Negative for injury, rash, and discoloration, Neuro: Negative for headache, weakness, numbness, tingling, and seizure activity. Psych: Negative for depression, anxiety, suicide ideation, homicidal ideation, and hallucinations, Allergy/Immunology: Negative for hives, rash, and allergies, Endocrine: Negative for neck swelling, polydipsia, polyuria, polyphagia, and marked weight changes, Hematologic/Lymphatic: Negative for swollen nodes, abnormal bleeding, and unusual bruising. 16:23 Cardiovascular: Positive for chest pain, with cough, with movement, of the left lateral anterior chest and left lateral posterior chest, Negative for edema, orthopnea, palpitations, paroxysmal nocturnal dyspnea. Exam: 16:23 Constitutional: This is a well developed, well nourished patient who is awake, alert, kdr and in no acute distress. Head/Face: Normocephalic, atraumatic. Eyes: Pupils equal round and reactive to light, extra-ocular motions intact. Lids and lashes normal. Conjunctiva and sclera are non-icteric and not injected. Cornea within normal limits. Periorbital areas with no swelling, redness, or edema. Neck: Trachea midline, no thyromegaly or masses palpated, and no cervical lymphadenopathy. Supple, full range of motion without nuchal rigidity, or vertebral point tenderness. No Meningismus. Cardiovascular: Regular rate and rhythm with a normal S1 and S2. No gallops, murmurs, or rubs. Normal PMI, no JVD. No pulse deficits. Respiratory: Lungs have equal breath sounds bilaterally, clear to auscultation and percussion. No rales, rhonchi or wheezes noted. No increased work of breathing, no retractions or nasal flaring. Abdomen/GI: Soft, non-tender, with normal bowel sounds. No distension or tympany. No guarding or rebound. No evidence of tenderness throughout. Back: No spinal tenderness. No costovertebral tenderness. Full range of motion. Skin: Warm, dry with normal turgor. Normal color with no rashes, no lesions, and no evidence of cellulitis. MS/ Extremity: Pulses equal, no cyanosis. Neurovascular intact. Full, normal range of motion. Neuro: Awake and alert, GCS 15, oriented to person, place, time, and situation. Cranial nerves II-XII grossly intact. Motor strength 5/5 in all extremities. Sensory grossly intact. Cerebellar exam normal. Normal gait. Psych: Awake, alert, with orientation to person, place and time. Behavior, mood, and affect are within normal limits. 16:23 Chest/axilla: Inspection: normal, Palpation: tenderness, that is moderate, of the left lateral anterior chest and left lateral posterior chest. Vital Signs: 13:25 BP 163 / 104; Pulse 104; Resp 20; Temp 99.2; Pulse Ox 97% on R/A; Weight 86.18 kg; dm5 Height 5 ft. 8 in. (172.72 cm); Pain 10/10; 14:43 BP 141 / 96; Pulse 75; Resp 16; Pulse Ox 99% ; Pain 10/10; jl7 13:25 Body Mass Index 28.89 (86.18 kg, 172.72 cm) dm5 [place] Coma Score: 14:43 Eye Response: spontaneous(4). Verbal Response: oriented(5). Motor Response: obeys jl7 commands(6). Total: 15. Trauma Score (Adult): 14:43 Eye Response: spontaneous(1); Verbal Response: oriented(1); Motor Response: obeys jl7 commands(2); Systolic BP: > 89 mm Hg(4); Respiratory Rate: 10 to 29 per min(4); Ernst Score: 15; Trauma Score: 12 MDM: 15:08 Patient medically screened. kdr 16:23 Data reviewed: vital signs, nurses notes, radiologic studies. Counseling: I had a kdr detailed discussion with the patient and/or guardian regarding: the historical points, exam findings, and any diagnostic results supporting the discharge/admit diagnosis, radiology results, the need for outpatient follow up. 04/03 13:28 Order name: Ribs Left XRAY [facility] 04/03 15:09 Order name: INCENTIVE SPIROMETRY kdr Administered Medications: 13:36 Drug: [place] 10 mg-325 mg 1 tabs {Note: RASS 0.} Route: PO; 5 14:48 Follow up: Response: Pain is unchanged, physician notified [facility] 15:16 Drug: Ibuprofen 800 mg Route: PO; 7 15:16 Follow up: Response: Medication administered at discharge. jl7 Disposition: 04/03/20 15:08 Discharged to Home. Impression: Multiple fractures of ribs, left side. - Condition is Stable. - Discharge Instructions: Incentive Spirometer, Rib Fracture, [id number]. - Prescriptions for Ibuprofen 800 mg Oral Tablet - take 1 tablet by ORAL route every 8 hours As needed take with food; 30 tablet. Tylenol- Codeine #3 300-30 mg Oral Tablet - take 2 tablets by ORAL route every 6 hours As needed; 20 tablet. - Medication Reconciliation Form, Thank You Letter, Prescription Opioid Use form. - Follow up: Private Physician; When: 2 - 3 days; Reason: If symptoms return, Further diagnostic work-up, Recheck today's complaints, Continuance of care, Re-evaluation by your physician. - Problem is new. - Symptoms have improved. Signatures: Dispatcher [employer] EDAZ Elsie Glasgow RN RN dm5 Terrell Mosquera MD MD kdr Alayna Melvin RN RN Luis M Puri RN RN jl7 Corrections: (The following items were deleted from the chart) 15:18 15:08 04/03/2020 15:08 Discharged to Home. Impression: Multiple fractures of ribs, left jl7 side. Condition is Stable. Forms are Medication Reconciliation Form, Thank You Letter, Antibiotic Education, Prescription Opioid Use. Follow up: Private Physician; When: 2 - 3 days; Reason: If symptoms return, Further diagnostic work-up, Recheck today's complaints, Continuance of care, Re-evaluation by your physician. Problem is new. Symptoms have improved. kdr
--- NOTE | 2020-04-08 14:24 | ER ---
Nurse's Notes [facility] Name: Alonso Karimi Age: 39 yrs Sex: Male : 1980 Arrival Date: 04/03/2020 Time: 12:55 Bed 5 Private MD: Diagnosis: Multiple fractures of ribs, left side Presentation: 04/03 13:25 Chief complaint: Patient states: fell in shower this morning around 0800 and felt like dm5 something cracked, He has done this in the past and has broken ribs before. Pain rated at 10/10 at this time. Coronavirus screen: Proceed with normal triage. Patient denies a cough. Patient denies shortness of breath or difficulty breathing. Patient denies measured and/or subjective temperature greater than 100.4F prior to today's visit. Patient denies travel on a cruise ship or to a country the [facility] currently lists as an affected area. Patient denies contact with known and/or suspected case of COVID-19. Ebola Screen: Patient negative for fever greater than or equal to 101.5 degrees Fahrenheit, and additional compatible Ebola Virus Disease symptoms Patient denies exposure to infectious person. Patient denies travel to an Ebola-affected area in the 21 days before illness onset. No symptoms or risks identified at this time. Initial Sepsis Screen: Does the patient meet any 2 criteria? No. Patient's initial sepsis screen is negative. Does the patient have a suspected source of infection? No. Patient's initial sepsis screen is negative. Risk Assessment: Do you want to hurt yourself or someone else? Patient reports no desire to harm self or others. Onset of symptoms was April 03, 2020. 13:25 Method Of Arrival: Ambulatory dm5 13:25 Acuity: HERMINIO 3 dm5 14:43 Care prior to arrival: None. Mechanism of Injury: Fall from standing position. Trauma jl7 event details: Injury occurred in the [facility], Injury occurred: at home. Injury occurred: April 03, 2020. Trauma Activation: Not Applicable Physician: ED Physician; Name: ; Notified At: ; Arrived At: Physician: General Surgeon; Name: ; Notified At: ; Arrived At: Physician: Radiology; Name: ; Notified At: ; Arrived At: Physician: Respiratory; Name: ; Notified At: ; Arrived At: Physician: Lab; Name: ; Notified At: ; Arrived At: Historical: - Allergies: 14:47 No Known Allergies; jl7 - Home Meds: 14:47 Adderall XR Oral [Active]; jl7 - PMHx: 14:47 ADD/ADHD; Anxiety; Bipolar disorder; Hypertension; jl7 - PSHx: 14:47 None; jl7 - Immunization history: Last tetanus immunization: unknown. - Social history:: Smoking status: Patient reports the use of cigarette tobacco products, denies chronic smoking, but will smoke occasionally, Patient reports use of chewing tobacco. Screenin:43 Abuse screen: Denies threats or abuse. Denies injuries from another. Tuberculosis jl7 screening: No symptoms or risk factors identified. 14:48 Nutritional screening: No deficits noted. Fall Risk None identified. jl7 Primary Survey: 14:43 NO uncontrolled hemorrhage observed. Breathing/Chest: Respiratory pattern: regular, jl7 Respiratory effort: spontaneous, unlabored, shallow, Chest inspection: symmetrical rise and fall of the chest. Circulation: Skin color: pink, Skin temperature: warm. Disability Alert. Exposure/Environment: There is no evidence of uncontrolled external bleeding. No obvious injuries are noted at this time. 15:00 Reassessment Breathing/Chest Respiratory pattern Regular Respiratory effort Spontaneous jl7 Unlabored Shallow Chest inspection Symmetrical. Assessment: 14:43 General: Appears in no apparent distress. uncomfortable, Behavior is calm, cooperative, jl7 appropriate for age. Pain: Complains of pain in anterior aspect of left lateral abdomen and posterior aspect of left lateral abdomen Pain currently is 10 out of 10 on a pain scale. Neuro: Level of Consciousness is awake, alert, obeys commands, Oriented to person, place, time, situation. Cardiovascular: Patient's skin is warm and dry. Respiratory: Airway is patent Respiratory effort is even, unlabored, Respiratory pattern is regular, symmetrical. Derm: Skin is pink, warm \T\ dry. Musculoskeletal: Swelling absent Crepitus absent. Vital Signs: 13:25 BP 163 / 104; Pulse 104; Resp 20; Temp 99.2; Pulse Ox 97% on R/A; Weight 86.18 kg; dm5 Height 5 ft. 8 in. (172.72 cm); Pain 10/10; 14:43 BP 141 / 96; Pulse 75; Resp 16; Pulse Ox 99% ; Pain 10/10; jl7 13:25 Body Mass Index 28.89 (86.18 kg, 172.72 cm) dm5 Ernst Coma Score: 14:43 Eye Response: spontaneous(4). Verbal Response: oriented(5). Motor Response: obeys jl7 commands(6). Total: 15. Trauma Score (Adult): 14:43 Eye Response: spontaneous(1); Verbal Response: oriented(1); Motor Response: obeys jl7 commands(2); Systolic BP: > 89 mm Hg(4); Respiratory Rate: 10 to 29 per min(4); Ernst Score: 15; Trauma Score: 12 ED Course: 12:55 Patient arrived in ED. fj1 13:27 Triage completed. dm5 14:18 Luis M Puri RN is Primary Nurse. jl7 14:23 Terrell Mosquera MD is Attending Physician. kdr 14:43 Patient has correct armband on for positive identification. Bed in low position. Call jl7 light in reach. Side rails up X 1. 14:43 Patient maintains SpO2 saturation greater than 95% on room air. Thermoregulation: jl7 [place] refused. 14:47 Arm band placed on right wrist. jl7 15:18 No provider procedures requiring assistance completed. Incentive spirometer education jl7 provided by an Emergency Department nursing staff member. Patient did not have IV access during this emergency room visit. Administered Medications: 13:36 Drug: [place] 10 mg-325 mg 1 tabs {Note: RASS 0.} Route: PO; dm5 14:48 Follow up: Response: Pain is unchanged, physician notified jl7 15:16 Drug: Ibuprofen 800 mg Route: PO; jl7 15:16 Follow up: Response: Medication administered at discharge. jl7 Intake: 15:17 PO: 0ml; IV: 0ml; Tubes: 0ml (); Total: 0ml. jl7 Output: 15:17 Urine: 0ml; Gastric: 0ml; Stool: 0; EBL: 0ml; Drainage: 0ml; Other: 0; Total: 0ml. jl7 Outcome: 15:08 Discharge ordered by . kdr 15:17 Discharged to home ambulatory. jl7 15:17 Condition: stable 15:17 Discharge instructions given to patient, Instructed on discharge instructions, follow up and referral plans. medication usage, Demonstrated understanding of instructions, follow-up care, medications, Prescriptions given X 2. 15:17 Patient's length of stay was not longer than 2 hours. 15:18 Patient left the ED. jl7 Signatures: Elsie Glasgow, AMOS RN dm5 Terrell Mosquera MD MD kdr Leal, Jahala, RN RN jl7 Herson Arnold fj1
== END 2020-04-03 15:18 | disposition home or self-care (01) ==
LOC: ER 12:51
DX: S22.42XA Multiple fractures of ribs, left side, initial encounter for closed fracture (principal); I10 Essential (primary) hypertension; F90.9 Attention-deficit hyperactivity disorder, unspecified type; F31.9 Bipolar disorder, unspecified; Z72.0 Tobacco use
CPT/HCPCS: 99284